=== PATIENT | male | born 1945 | race Caucasian/White ===

== ENCOUNTER 2018-10-01 22:59 | Inpatient (IN) ==
[2018-10-01] MEDS ORDERED: MORPHINE 4 MG/1 ML VIAL IV STA (23:29)
[2018-10-01] MEDS ORDERED: ASPIRIN 325 MG TABLET PO STA (23:29)
[2018-10-01] MEDS ORDERED: ONDANSETRON 4 MG/2 ML VIAL IV STA (23:29)
[2018-10-01] MEDS ORDERED: NITROGLYCERIN 2% OINT 1 INCH/GM PACK TOP STA (23:29)
[2018-10-01] MEDS ORDERED: ALUM/MAG/SIMETH/LIDO VISC 1:1 30 ML BOTTLE PO STA (23:29)
[2018-10-01 23:50] LABS: Basophils # 0.1 10*3/uL (0.0-0.2); Basophils % 0.5 % (0.0-0.8); Eosinophils % 0.1 % (0.00-10.9); Hematocrit 46.8 VOL% (42.0-52.0); Hemoglobin 15.2 GM/DL (14.0-18.0); Immature Granulocytes % 0.6 %; Immature Granulocytes Absolute 0.09 #; Lymphocytes # 1.1 10*3/uL (1.4-4.0); Lymphocytes % 7.3 % (21.2-54.2); Mean Corpuscular HGB Conc 32.5 GM/DL (32-36); Mean Corpuscular Volume 95.1 FL (87-102); Mean Platelet Volume 8.8 FL (9.6-12.0); Monocytes % 4.4 % (1.7-12.7); Neutrophils % 87.1 % (38.7-73.9); Platelet Count 219 T/CUMM (130-400); Red Blood Count 4.92 MC/CUMM (3.8-5.5); Red Cell Distribution Width 12.4 % (9.3-17.3); White Blood Count 14.4 T/CUMM (4-12)
[2018-10-02] MEDS ORDERED: FUROSEMIDE 40 MG/4 ML VIAL IV STA (00:01)
[2018-10-02 00:21] LABS: Alanine Aminotransferase 23 U/L (16-61); Albumin 3.5 G/DL (3.4-5.0); Alkaline Phosphatase 42 U/L (45-117); Aspartate Amino Transferase 19 U/L (0-37); Blood Urea Nitrogen 9 MG/DL (7-18); CKMB % 3.8 %; Calcium 8.7 MG/DL (8.5-10.1); Glucose 146 MG/DL (74-106); Osmolality,Calculated 280.4 MOS/KG (273-304); Total Protein 6.9 G/DL (6.4-8.3)
[2018-10-02 00:25] LABS: Troponin I 0.676 NG/ML (0.00-0.045)
[2018-10-02] MEDS ORDERED: ENOXAPARIN 100 MG/ML SYRINGE SUBCUT STA (02:33)
[2018-10-02] MEDS ORDERED: DOCUSATE SODIUM 100 MG CAPSULE PO PRN (02:49)
[2018-10-02] MEDS ORDERED: ONDANSETRON 4 MG/2 ML VIAL IV PRN ×2 (02:49→16:02)
[2018-10-02] MEDS ORDERED: MORPHINE 4 MG/1 ML VIAL IV PRN ×2 (02:49→16:02)
[2018-10-02] MEDS ORDERED: ACETAMINOPHEN 325 MG TABLET PO PRN (02:49)
[2018-10-02] MEDS ORDERED: NITROGLYCERIN SL 0.4 MG TABLET SL PRN (02:49)
[2018-10-02 03:11] LABS: Apearance,Urine CLEAR (Clear); Bilirubin,Urine Negative (Negative); Blood, Urine Negative (Negative); Glucose,Urine (UA) Negative (Negative); Ketones,Urine 80 mg/dL (Negative); Mucus,Urine Occasional /LPF (Occasional); Nitrite,Urine Negative (Negative); Protein,Urine Negative; RBC,Urine 3 /HPF (0-4); Urine Color Yellow (Yellow); Urine Urobilinogen < 2.0 EU/DL (0.2-1.0); WBC,Urine <1 /HPF (0-6)
[2018-10-02 05:57] LABS: Basophils % 0.4 % (0.0-0.8); Hematocrit 46.7 VOL% (42.0-52.0); Hemoglobin 15.6 GM/DL (14.0-18.0); Immature Granulocytes % 0.4 %; Immature Granulocytes Absolute 0.04 #; Lymphocytes # 1.6 10*3/uL (1.4-4.0); Lymphocytes % 13.9 % (21.2-54.2); Mean Corpuscular HGB Conc 33.4 GM/DL (32-36); Mean Platelet Volume 9.2 FL (9.6-12.0); Monocytes % 8.8 % (1.7-12.7); Neutrophils % 76.5 % (38.7-73.9); Platelet Count 219 T/CUMM (130-400); Red Blood Count 4.97 MC/CUMM (3.8-5.5); Red Cell Distribution Width 12.5 % (9.3-17.3); White Blood Count 11.3 T/CUMM (4-12)
[2018-10-02] MEDS ORDERED: POTASSIUM CHLORIDE RIDER 10 MEQ in PREMIX 1 EACH IV PRN (06:33)
[2018-10-02] MEDS ORDERED: DIAZEPAM 5 MG TABLET PO ONE (06:33)
[2018-10-02] MEDS ORDERED: MAGNESIUM SULF RIDER 2 GM in PREMIX 1 EACH IV PRN ×2 (06:33→16:02)
[2018-10-02] MEDS ORDERED: diphenhydrAMINE CAP 25 MG CAPSULE PO ONE (06:33)
[2018-10-02 06:37] LABS: Calcium 8.8 MG/DL (8.5-10.1); Osmolality,Calculated 276.5 MOS/KG (273-304); Risk Ratio 6.63; Thyroid Stimulating Hormone 0.611 uIU/ml (0.358-3.74); VLDL CHOLESTEROL 24.2 MG/DL
[2018-10-02] MEDS: SODIUM CHLORIDE 0.9% 1,000 ML IV SCH ×2 (07:03→14:48)
[2018-10-02] MEDS ORDERED: MIDAZOLAM 2 MG/2 ML VIAL ONE (07:23)
[2018-10-02] MEDS ORDERED: NITROGLYCERIN DRIP 50 MG/250 ML BOTTLE IV ONE ×2 (07:23→08:57)
[2018-10-02] MEDS ORDERED: LIDOCAINE 1% 20 ML VIAL ONE (07:23)
[2018-10-02] MEDS ORDERED: fentaNYL 100 MCG/2 ML VIAL ONE (07:23)
[2018-10-02] MEDS ORDERED: VERAPAMIL 5 MG/2 ML VIAL ONE (07:23)
[2018-10-02] MEDS ORDERED: PAPAVERINE 60 MG/2 ML VIAL ONE (08:28)
[2018-10-02] MEDS ORDERED: VANCOMYCIN 1,000 MG VIAL ONE (08:29)
[2018-10-02] MEDS ORDERED: MIDAZOLAM 10 MG/2 ML VIAL ONE (08:38)
[2018-10-02] MEDS ORDERED: MINERAL OIL/PETROLATUM OPH OINT 3.5 GM TUBE ONE (08:38)
[2018-10-02] MEDS ORDERED: SUCCINYLCHOLINE 200 MG/10 ML VIAL ONE (08:38)
[2018-10-02] MEDS ORDERED: SUFentanil 250 MCG/5 ML AMP ONE (08:38)
[2018-10-02] MEDS ORDERED: PANTOPRAZOLE 40 MG TABLET PO ONE (08:55)
[2018-10-02] MEDS ORDERED: PHENYLEPHRINE DRIP 20 MG/250 ML PREMIX IV ONE (08:57)
[2018-10-02] MEDS ORDERED: HEPARIN/NACL 0.9% 2 UNITS/ML 500 ML IV ONE (08:57)
[2018-10-02] MEDS ORDERED: ASCORBIC ACID 500 MG TABLET PO SCH (09:00)
[2018-10-02] MEDS ORDERED: LOSARTAN 50 MG TABLET PO SCH (09:00)
[2018-10-02] MEDS ORDERED: MULTIVITAMIN (BEROCCA) TABLET PO SCH (09:00)
[2018-10-02] MEDS ORDERED: amLODIPine 5 MG TABLET PO SCH (09:00)
[2018-10-02] MEDS ORDERED: VITAMIN E 400 UNIT CAPSULE PO SCH (09:00)
[2018-10-02] MEDS ORDERED: ENALAPRIL 20 MG TABLET PO SCH (09:00)
[2018-10-02] MEDS ORDERED: ASPIRIN EC 81 MG TABLET PO SCH (09:00)
[2018-10-02] MEDS ORDERED: CARVEDILOL 6.25 MG TABLET PO SCH (09:00)
[2018-10-02] MEDS ORDERED: DEXTROSE 10% 250 ML BAG IV PRN ×3 (09:05→16:02)
[2018-10-02] MEDS ORDERED: GLUCAGON 1 MG VIAL IM PRN (09:05)
[2018-10-02] MEDS ORDERED: CEFUROXIME INJ 1,500 MG in SYRINGE 1 EACH IV ONE (09:05)
[2018-10-02] MEDS ORDERED: SODIUM CHLORIDE 0.9% 1,000 ML IV SCH (09:30)
[2018-10-02 09:32] LABS: ABG Base Excess -0.2 MMOL/L (-2.5-2.5); ABG HCO3 24.2 MMOL/L (20-26); ABG Oxygen Saturation 95.1 % (95-100); ABG PCO2 35.4 MM HG (35-48); ABG PH 7.429 (7.35-7.45); ABG PO2 76.1 MM HG (80-95); ABG TCO2 19.4 MMOL/L (23-27); Allen Test Positive
[2018-10-02] MEDS ORDERED: NITROPRUSSIDE 50 MG/2 ML VIAL ONE (09:50)
[2018-10-02] MEDS ORDERED: PHENYLEPHRINE DRIP 40 MG/250 ML PREMIX IV ONE (09:50)
[2018-10-02] MEDS ORDERED: ALBUMIN 5% 12.5 GM/250 ML VIAL IV ONE (09:51)
[2018-10-02] MEDS ORDERED: POTASSIUM CHLORIDE RIDER 100 ML IV ONE (09:51)
[2018-10-02 10:39] LABS: ABG Base Excess -0.5 MMOL/L (-2.5-2.5); ABG HCO3 24.1 MMOL/L (20-26); ABG Oxygen Saturation 99.5 % (95-100); ABG PCO2 43.3 MM HG (35-48); ABG TCO2 21.4 MMOL/L (23-27); Glucose Heart Surgery 114 MG/DL (74-106); Hematocrit Heart Surgery 45.9 PERCENT (42-52); Ionized Calcium Arterial 1.15 MMOL/L (1.21-1.46); PCO2 Patient Temp Arterial 43.3 MMHG; Patient Temperature 37 CELCIUS; Potassium Heart/CVR 3.5 MMOL/L (3.5-5.1); Sodium Heart/CVR 137 MMOL/L (135-145)
[2018-10-02 12:21] LABS: Hemoglobin Heart Surgery 10.7 G/DL (14.0-18.0); PCO2 Patient Temp Venous 37.5 MM HG; PH Patient Temp Venous 7.421; PO2 Patient Temp Venous 41.9 MM HG; Potassium Heart/CVR 3.9 MMOL/L (3.5-5.1); VBG Base Excess 0.1 MEQ/L (0-4); VBG HCO3 24.3 MEQ/L (24-28); VBG Oxygen Saturation 84.4 %; VBG PCO2 43.3 MMHG (41-51); VBG PH 7.377; VBG PO2 51.5 MMHG (17-40)
[2018-10-02 12:49] LABS: Hematocrit Heart Surgery 33.8 PERCENT (42-52); PH Patient Temp Venous 7.46; PO2 Patient Temp Venous 42.9 MM HG; Potassium Heart/CVR 3.8 MMOL/L (3.5-5.1); VBG Base Excess 0.2 MEQ/L (0-4); VBG HCO3 24.4 MEQ/L (24-28); VBG PCO2 38.2 MMHG (41-51); VBG PH 7.416; VBG PO2 52.7 MMHG (17-40)
[2018-10-02 12:57] LABS: Apearance,Urine CLEAR (Clear); Bilirubin,Urine Negative (Negative); Blood, Urine Negative (Negative); Glucose,Urine (UA) Negative (Negative); Hyaline Casts,Urine 1 /LPF (0-3); Ketones,Urine 20 mg/dL (Negative); Nitrite,Urine Negative (Negative); Protein,Urine Negative; Squamous Epithelial Cell,Urine Occasional /HPF (0-10); Urine Color Straw (Yellow); Urine Specific Gravity 1.036 (1.001-1.035); Urine Urobilinogen < 2.0 EU/DL (0.2-1.0)
[2018-10-02 13:20] LABS: Glucose Heart Surgery 220 MG/DL (74-106); Hemoglobin Heart Surgery 11.2 G/DL (14.0-18.0); Potassium Heart/CVR 4.2 MMOL/L (3.5-5.1); Sodium Heart/CVR 129 MMOL/L (135-145); VBG Base Excess -0.9 MEQ/L (0-4); VBG Oxygen Saturation 79.6 %; VBG PCO2 30.8 MMHG (41-51); VBG PH 7.472; VBG PO2 47.4 MMHG (17-40)
[2018-10-02] MEDS ORDERED: THROMBIN TOPICAL (RECOMBINANT) 5,000 UNIT VIAL TOP ONE ×2 (13:52→14:27)
[2018-10-02 14:13] LABS: ABG HCO3 21.3 MMOL/L (20-26); ABG Oxygen Saturation 97.7 % (95-100); ABG PCO2 35.5 MM HG (35-48); ABG PH 7.396 (7.35-7.45); ABG PO2 114.6 MM HG (80-95); ABG TCO2 22.4 MMOL/L (23-27); Glucose Heart Surgery 193 MG/DL (74-106); Ionized Calcium Arterial 1.22 MMOL/L (1.21-1.46); PCO2 Patient Temp Arterial 35.5 MMHG; PH Patient Temp Arterial 7.396; PO2 Patient Temp Arterial 114.6 MM HG; Patient Temperature 37 CELCIUS; Potassium Heart/CVR 4.1 MMOL/L (3.5-5.1); Sodium Heart/CVR 131 MMOL/L (135-145)
[2018-10-02] MEDS ORDERED: MANNITOL 100 GM/500 ML BAG IV ONE (14:19)
[2018-10-02] MEDS ORDERED: MAGNESIUM SULFATE 5 GM/10 ML VIAL IV ONE (14:20)
[2018-10-02] MEDS ORDERED: ALBUMIN 25% 25 GM/100 ML VIAL IV ONE (14:20)
[2018-10-02] MEDS ORDERED: PROTAMINE SULFATE 50 MG/5 ML VIAL IV ONE ×2 (14:20→15:47)
[2018-10-02] MEDS ORDERED: FUROSEMIDE 20 MG/2 ML VIAL ONE (14:20)
[2018-10-02] MEDS ORDERED: PROTAMINE SULFATE 250 MG/25 ML VIAL IV ONE (14:20)
[2018-10-02] MEDS ORDERED: SODIUM BICARBONATE 50 MEQ/50 ML VIAL IV ONE (14:20)
[2018-10-02] MEDS ORDERED: DEXTROSE 5% KCL 20 MEQ 20 MEQ/1,000 ML BAG IV ONE (14:20)
[2018-10-02] MEDS ORDERED: HEPARIN 10,000 UNIT/10 ML VIAL ONE (14:20)
[2018-10-02] MEDS ORDERED: methylPREDNISolone SOD SUC 1,000 MG/8 ML VIAL ONE (14:20)
[2018-10-02] MEDS ORDERED: ENOXAPARIN 100 MG/ML SYRINGE SUBCUT SCH (14:30)
[2018-10-02] MEDS ORDERED: CHLORHEXIDINE 4% SOLN 118 ML BOTTLE TOP SCH (15:00)
[2018-10-02] MEDS ORDERED: SEVOFLURANE 1 UNIT/15 MINUTE INH ONE (15:46)
[2018-10-02] MEDS ORDERED: CALCIUM CHLORIDE 1,000 MG/10 ML VIAL IV ONE (15:46)
[2018-10-02] MEDS ORDERED: ETOMIDATE 40 MG/20 ML VIAL IV ONE (15:47)
[2018-10-02] MEDS ORDERED: LACTATED RINGERS 2,000 ML IV ONE (15:47)
[2018-10-02] MEDS ORDERED: ePHEDrine 50 MG/ML AMP ONE (15:47)
[2018-10-02] MEDS ORDERED: SODIUM CHLORIDE 0.9% 1,000 ML IV ONE (15:47)
[2018-10-02] MEDS ORDERED: VECURONIUM 10 MG VIAL IV ONE ×2 (15:47→15:48)
[2018-10-02] MEDS ORDERED: SODIUM CHLORIDE 0.9% 200 ML IV ONE (15:47)
[2018-10-02] MEDS ORDERED: AMINOCAPROIC ACID 5,000 MG/20 ML VIAL ONE (15:48)
[2018-10-02] MEDS: ALBUMIN 5% 12.5 GM in PREMIX 1 EACH IV PRN ×2 (16:00→16:58)
[2018-10-02] MEDS ORDERED: INSULIN REGULAR 100 UNIT/ML IV ONE (16:02)
[2018-10-02] MEDS ORDERED: MIDAZOLAM 10 MG/2 ML VIAL IV PRN (16:02)
[2018-10-02] MEDS ORDERED: VECURONIUM 10 MG VIAL IV PRN ×2 (16:02)
[2018-10-02] MEDS ORDERED: MIDAZOLAM 2 MG/2 ML VIAL IV PRN (16:02)
[2018-10-02] MEDS ORDERED: INSULIN REGULAR DRIP 100 ML IV SCH (16:02)
[2018-10-02] MEDS ORDERED: MAGNESIUM SULF RIDER 4 GM in PREMIX 1 EACH IV PRN (16:02)
[2018-10-02] MEDS ORDERED: INSULIN REGULAR 100 UNIT/ML IV PRN (16:02)
[2018-10-02] MEDS ORDERED: ACETAMINOPHEN 650 MG SUPP RECTAL PRN (16:02)
[2018-10-02] MEDS ORDERED: NITROPRUSSIDE 100 MG in DEXTROSE 5% 250 ML IV PRN (16:02)
[2018-10-02] MEDS ORDERED: CALCIUM CHLORIDE 1,000 MG/10 ML SYRINGE IV PRN (16:02)
[2018-10-02 16:09] LABS: ABG HCO3 21.9 MMOL/L (20-26); ABG Oxygen Saturation 97.3 % (95-100); ABG PCO2 39.8 MM HG (35-48); ABG PH 7.356 (7.35-7.45); ABG PO2 97.4 MM HG (80-95); ABG TCO2 20.3 MMOL/L (23-27); Glucose Heart Surgery 204 MG/DL (74-106); Hematocrit Heart Surgery 31.1 PERCENT (42-52); Hemoglobin Heart Surgery 10.1 G/DL (14.0-18.0)
[2018-10-02 16:10] LABS: Basophils # 0.1 10*3/uL (0.0-0.2); Basophils % 0.3 % (0.0-0.8); Eosinophils % 0.2 % (0.00-10.9); Hematocrit 29.9 VOL% (42.0-52.0); Immature Granulocytes % 1.2 %; Immature Granulocytes Absolute 0.21 #; Lymphocytes # 1.1 10*3/uL (1.4-4.0); Lymphocytes % 6.5 % (21.2-54.2); Mean Corpuscular HGB Conc 32.1 GM/DL (32-36); Mean Corpuscular Volume 97.1 FL (87-102); Mean Platelet Volume 9.3 FL (9.6-12.0); Monocytes % 6.6 % (1.7-12.7); Neutrophils % 85.2 % (38.7-73.9); Platelet Count 141 T/CUMM (130-400); Red Cell Distribution Width 12.6 % (9.3-17.3)
[2018-10-02] MEDS: SODIUM CHLORIDE 0.45% 1,000 ML IV SCH ×2 (16:10)
[2018-10-02 16:12] LABS: Hemoglobin 9.6 GM/DL (14.0-18.0); Red Blood Count 3.08 MC/CUMM (3.8-5.5); White Blood Count 17.5 T/CUMM (4-12)
[2018-10-02 16:17] LABS: INR 1.2; PT Patient Result 12.8 SECS; Partial Thromboplastin Time 28.8 SECS (0-40)
[2018-10-02 16:23] LABS: Albumin 2.7 G/DL (3.4-5.0); Bilirubin,Total 0.9 MG/DL (0.2-1.0); CKMB % 11.8 %; Calcium 7.9 MG/DL (8.5-10.1); Osmolality,Calculated 285.3 MOS/KG (273-304); Total Protein 4.8 G/DL (6.4-8.3)
[2018-10-02 16:33] LABS: Troponin I 34.7 NG/ML (0.00-0.045)
[2018-10-02] MEDS: DOBUTamine 500 MG/250 ML PREMIX IV SCH (16:44)
[2018-10-02] MEDS: KETOROLAC 30 MG/1 ML VIAL IV SCH ×2 (16:44→21:27)
[2018-10-02] MEDS: POTASSIUM CHLORIDE RIDER 20 MEQ in PREMIX 1 EACH IV PRN ×2 (16:45→19:50)
[2018-10-02] MEDS: PHENYLEPHRINE DRIP 40 MG/250 ML PREMIX IV PRN ×2 (16:46→20:31)
[2018-10-02] MEDS: LACTATED RINGERS 1,000 ML IV PRN ×2 (16:59→17:58)
[2018-10-02 17:26] LABS: ABG Base Excess -4.7 MMOL/L (-2.5-2.5); ABG HCO3 20.4 MMOL/L (20-26); ABG Oxygen Saturation 95.7 % (95-100); ABG PCO2 40.2 MM HG (35-48); ABG PH 7.324 (7.35-7.45); ABG PO2 86.6 MM HG (80-95); ABG TCO2 19.3 MMOL/L (23-27); Glucose Heart Surgery 228 MG/DL (74-106); Hematocrit Heart Surgery 29.7 PERCENT (42-52); Hemoglobin Heart Surgery 9.6 G/DL (14.0-18.0); Potassium Heart/CVR 5.1 MMOL/L (3.5-5.1)
[2018-10-02] MEDS ORDERED: FUROSEMIDE 40 MG/4 ML VIAL IV ONE (18:35)
[2018-10-02 19:25] LABS: ABG Base Excess -0.9 MMOL/L (-2.5-2.5); ABG HCO3 23.6 MMOL/L (20-26); ABG Oxygen Saturation 91.7 % (95-100); ABG PCO2 42.5 MM HG (35-48); ABG PH 7.367 (7.35-7.45); ABG PO2 66.2 MM HG (80-95); ABG TCO2 22.6 MMOL/L (23-27); Glucose Heart Surgery 178 MG/DL (74-106); Hematocrit Heart Surgery 28.5 PERCENT (42-52); Hemoglobin Heart Surgery 9.2 G/DL (14.0-18.0); Potassium Heart/CVR 3.7 MMOL/L (3.5-5.1)
[2018-10-02 20:07] LABS: ABG Base Excess 0.3 MMOL/L (-2.5-2.5); ABG HCO3 24.9 MMOL/L (20-26); ABG Oxygen Saturation 96.5 % (95-100); ABG PCO2 40.3 MM HG (35-48); ABG PH 7.409 (7.35-7.45); ABG PO2 94.7 MM HG (80-95); ABG TCO2 26.2 MMOL/L (23-27); Glucose Heart Surgery 159 MG/DL (74-106); Hemoglobin Heart Surgery 9.6 G/DL (14.0-18.0); Potassium Heart/CVR 3.7 MMOL/L (3.5-5.1)
[2018-10-02] MEDS: POTASSIUM CHLORIDE RIDER 10 MEQ in PREMIX 1 EACH IV PRN (20:21)
[2018-10-02] MEDS ORDERED: CHLORHEXIDINE 0.12% ORAL RINSE 60 ML BOTTLE SWISH/SPIT SCH (21:00)
[2018-10-02] MEDS ORDERED: ROSUVASTATIN 20 MG TABLET PO SCH (21:00)
[2018-10-02 21:25] LABS: ABG Base Excess 0.6 MMOL/L (-2.5-2.5); ABG HCO3 24.9 MMOL/L (20-26); ABG Oxygen Saturation 98.4 % (95-100); ABG PCO2 39.6 MM HG (35-48); ABG PH 7.411 (7.35-7.45); Glucose Heart Surgery 146 MG/DL (74-106); Hemoglobin Heart Surgery 9.4 G/DL (14.0-18.0); Potassium Heart/CVR 3.8 MMOL/L (3.5-5.1)
[2018-10-02] MEDS: CHLORHEXIDINE 0.12% ORAL RINSE 60 ML BOTTLE SWISH/SPIT SCH (21:27)
[2018-10-02 22:12] LABS: ABG Base Excess 1.3 MMOL/L (-2.5-2.5); ABG HCO3 25.6 MMOL/L (20-26); ABG Oxygen Saturation 97.1 % (95-100); ABG PCO2 39.4 MM HG (35-48); ABG PH 7.431 (7.35-7.45); ABG PO2 104.1 MM HG (80-95); ABG TCO2 26.8 MMOL/L (23-27); Glucose Heart Surgery 123 MG/DL (74-106); Hemoglobin Heart Surgery 9.5 G/DL (14.0-18.0); Potassium Heart/CVR 3.5 MMOL/L (3.5-5.1)
[2018-10-02] MEDS: LACTATED RINGERS 250 ML IV PRN (23:57)
[2018-10-03 00:02] LABS: ABG Base Excess 0.9 MMOL/L (-2.5-2.5); ABG HCO3 25.2 MMOL/L (20-26); ABG Oxygen Saturation 98.9 % (95-100); ABG PCO2 38.8 MM HG (35-48); ABG PH 7.421 (7.35-7.45); ABG TCO2 22.8 MMOL/L (23-27); Glucose Heart Surgery 109 MG/DL (74-106); Hematocrit Heart Surgery 31.3 PERCENT (42-52); Hemoglobin Heart Surgery 10.1 G/DL (14.0-18.0); Potassium Heart/CVR 3.6 MMOL/L (3.5-5.1)
[2018-10-03] MEDS: CEFUROXIME INJ 1,500 MG in SYRINGE 1 EACH IV SCH ×3 (00:05→22:43)
[2018-10-03] MEDS: POTASSIUM CHLORIDE RIDER 20 MEQ in PREMIX 1 EACH IV PRN ×3 (00:09→10:17)
[2018-10-03] MEDS: LACTATED RINGERS 250 ML IV PRN (00:14)
[2018-10-03] MEDS: POTASSIUM CHLORIDE RIDER 10 MEQ in PREMIX 1 EACH IV PRN ×2 (00:45→05:03)
[2018-10-03 00:48] LABS: CKMB % 9.3 %
[2018-10-03 00:50] LABS: Troponin I 49.3 NG/ML (0.00-0.045)
[2018-10-03 01:23] LABS: ABG Base Excess 0.7 MMOL/L (-2.5-2.5); ABG Oxygen Saturation 98.2 % (95-100); ABG PCO2 38.8 MM HG (35-48); ABG PH 7.418 (7.35-7.45); ABG TCO2 22.8 MMOL/L (23-27); Glucose Heart Surgery 106 MG/DL (74-106); Hematocrit Heart Surgery 30.9 PERCENT (42-52); Potassium Heart/CVR 4.3 MMOL/L (3.5-5.1)
[2018-10-03] MEDS: FUROSEMIDE 40 MG/4 ML VIAL IV PRN (04:06)
[2018-10-03] MEDS: KETOROLAC 30 MG/1 ML VIAL IV SCH ×4 (04:10→21:16)
[2018-10-03 04:29] LABS: ABG HCO3 24.4 MMOL/L (20-26); ABG Oxygen Saturation 94.8 % (95-100); ABG PCO2 35.5 MM HG (35-48); ABG PH 7.436 (7.35-7.45); ABG PO2 71.5 MM HG (80-95); ABG TCO2 21.6 MMOL/L (23-27); Glucose Heart Surgery 111 MG/DL (74-106); Hematocrit Heart Surgery 31.6 PERCENT (42-52); Hemoglobin Heart Surgery 10.2 G/DL (14.0-18.0); Potassium Heart/CVR 3.7 MMOL/L (3.5-5.1)
[2018-10-03 04:59] LABS: Albumin 3.2 G/DL (3.4-5.0); Bilirubin,Direct 0.24 MG/DL (0.0-0.20); Calcium 8.1 MG/DL (8.5-10.1); Osmolality,Calculated 282.1 MOS/KG (273-304); Total Protein 5.7 G/DL (6.4-8.3)
[2018-10-03 05:44] LABS: ABG Base Excess 1.2 MMOL/L (-2.5-2.5); ABG HCO3 25.5 MMOL/L (20-26); ABG Oxygen Saturation 97.8 % (95-100); ABG PCO2 34.7 MM HG (35-48); ABG PO2 92.1 MM HG (80-95); ABG TCO2 22.3 MMOL/L (23-27); Glucose Heart Surgery 119 MG/DL (74-106); Hematocrit Heart Surgery 31.7 PERCENT (42-52); Hemoglobin Heart Surgery 10.2 G/DL (14.0-18.0); Potassium Heart/CVR 4.1 MMOL/L (3.5-5.1)
[2018-10-03 06:00] LABS: Basophils % 0.1 % (0.0-0.8); Hematocrit 30.1 VOL% (42.0-52.0); Hemoglobin 9.7 GM/DL (14.0-18.0); Immature Granulocytes % 0.5 %; Immature Granulocytes Absolute 0.06 #; Lymphocytes # 0.7 10*3/uL (1.4-4.0); Lymphocytes % 5.6 % (21.2-54.2); Mean Corpuscular HGB Conc 32.2 GM/DL (32-36); Mean Corpuscular Volume 96.2 FL (87-102); Mean Platelet Volume 10.7 FL (9.6-12.0); Neutrophils % 88.8 % (38.7-73.9); Platelet Count 134 T/CUMM (130-400); Red Blood Count 3.13 MC/CUMM (3.8-5.5); Red Cell Distribution Width 13.4 % (9.3-17.3); White Blood Count 11.9 T/CUMM (4-12)
[2018-10-03 06:31] LABS: ABG Base Excess 0.2 MMOL/L (-2.5-2.5); ABG HCO3 24.6 MMOL/L (20-26); ABG Oxygen Saturation 98.8 % (95-100); ABG PCO2 33.2 MM HG (35-48); ABG PH 7.459 (7.35-7.45); ABG TCO2 21.3 MMOL/L (23-27); Glucose Heart Surgery 119 MG/DL (74-106); Potassium Heart/CVR 4.4 MMOL/L (3.5-5.1)
[2018-10-03] MEDS ORDERED: NITROGLYCERIN DRIP 50 MG/250 ML BOTTLE IV ONE (07:29)
[2018-10-03] MEDS: CHLORHEXIDINE 0.12% ORAL RINSE 60 ML BOTTLE SWISH/SPIT SCH ×2 (08:07→21:16)
[2018-10-03] MEDS ORDERED: NITROGLYCERIN DRIP 50 MG/250 ML BOTTLE IV PRN (08:25)
[2018-10-03] MEDS: ALBUMIN 5% 12.5 GM in PREMIX 1 EACH IV PRN (08:25)
[2018-10-03 09:54] LABS: ABG Base Excess -2.4 MMOL/L (-2.5-2.5); ABG HCO3 22.4 MMOL/L (20-26); ABG Oxygen Saturation 99.1 % (95-100); ABG PCO2 31.3 MM HG (35-48); ABG PH 7.437 (7.35-7.45); ABG TCO2 19.3 MMOL/L (23-27); Glucose Heart Surgery 121 MG/DL (74-106); Hematocrit Heart Surgery 28.8 PERCENT (42-52); Hemoglobin Heart Surgery 9.3 G/DL (14.0-18.0)
[2018-10-03 11:03] LABS: ABG Base Excess -2.4 MMOL/L (-2.5-2.5); ABG HCO3 22.4 MMOL/L (20-26); ABG Oxygen Saturation 98.6 % (95-100); ABG PCO2 32.5 MM HG (35-48); ABG PH 7.426 (7.35-7.45); ABG TCO2 19.5 MMOL/L (23-27); Glucose Heart Surgery 122 MG/DL (74-106); Hematocrit Heart Surgery 29.2 PERCENT (42-52); Hemoglobin Heart Surgery 9.4 G/DL (14.0-18.0); Potassium Heart/CVR 4.2 MMOL/L (3.5-5.1)
[2018-10-03 13:13] LABS: CKMB % 6.7 %
[2018-10-03 13:14] LABS: Troponin I 51.2 NG/ML (0.00-0.045)
[2018-10-03 16:13] LABS: CKMB % 5.9 %; Troponin I 36.3 NG/ML (0.00-0.045)
[2018-10-03] MEDS: ASPIRIN EC 81 MG TABLET PO SCH (16:55)
[2018-10-03] MEDS: SODIUM CHLORIDE 0.45% 1,000 ML IV SCH ×2 (21:16)
[2018-10-03] MEDS: DOBUTamine 500 MG/250 ML PREMIX IV SCH (23:07)
[2018-10-04] MEDS: DOBUTamine 500 MG/250 ML PREMIX IV SCH (01:21)
[2018-10-04] MEDS: MORPHINE 10 MG/1 ML VIAL IV PRN ×4 (01:32→23:15)
[2018-10-04 04:29] LABS: Basophils % 0.1 % (0.0-0.8); Hematocrit 28.7 VOL% (42.0-52.0); Hemoglobin 9.2 GM/DL (14.0-18.0); Immature Granulocytes Absolute 0.16 #; Lymphocytes # 0.8 10*3/uL (1.4-4.0); Lymphocytes % 5.4 % (21.2-54.2); Mean Corpuscular HGB Conc 32.1 GM/DL (32-36); Mean Corpuscular Volume 96.6 FL (87-102); Mean Platelet Volume 10.8 FL (9.6-12.0); Monocytes % 8.7 % (1.7-12.7); NRBC # 0.02 10*3/uL; Neutrophils % 84.8 % (38.7-73.9); Platelet Count 134 T/CUMM (130-400); Red Blood Count 2.97 MC/CUMM (3.8-5.5); Red Cell Distribution Width 13.6 % (9.3-17.3); White Blood Count 15.3 T/CUMM (4-12)
[2018-10-04 04:34] LABS: Calcium 7.7 MG/DL (8.5-10.1); Osmolality,Calculated 283.5 MOS/KG (273-304)
[2018-10-04 04:45] LABS: Albumin 3.1 G/DL (3.4-5.0); Bilirubin,Direct 0.16 MG/DL (0.0-0.20); Calcium 7.8 MG/DL (8.5-10.1); Osmolality,Calculated 285.4 MOS/KG (273-304); Total Protein 5.5 G/DL (6.4-8.3)
[2018-10-04] MEDS ORDERED: ASPIRIN EC 81 MG TABLET PO SCH (09:00)
[2018-10-04] MEDS ORDERED: ENALAPRIL 20 MG TABLET PO SCH (09:00)
[2018-10-04] MEDS: CARVEDILOL 6.25 MG TABLET PO SCH ×2 (10:04→21:10)
[2018-10-04] MEDS: ASCORBIC ACID 500 MG TABLET PO SCH (10:04)
[2018-10-04] MEDS: ASPIRIN EC 81 MG TABLET PO SCH (10:04)
[2018-10-04] MEDS: amLODIPine 5 MG TABLET PO SCH (10:04)
[2018-10-04] MEDS: LOSARTAN 50 MG TABLET PO SCH (10:04)
[2018-10-04] MEDS: VITAMIN E 400 UNIT CAPSULE PO SCH (10:04)
[2018-10-04] MEDS: MULTIVITAMIN (BEROCCA) TABLET PO SCH (10:04)
[2018-10-04 11:58] LABS: VBG Base Excess 0.4 MEQ/L (0-4); VBG HCO3 23.8 MEQ/L (24-28); VBG Oxygen Saturation 41.8 %; VBG PCO2 39.9 MMHG (41-51); VBG PH 7.405; VBG PO2 27.7 MMHG (17-40)
[2018-10-04] MEDS: FUROSEMIDE 40 MG/4 ML VIAL IV PRN (12:38)
[2018-10-04] MEDS: CHLORHEXIDINE 0.12% ORAL RINSE 60 ML BOTTLE SWISH/SPIT SCH ×2 (12:39→21:11)
[2018-10-04] MEDS: ACETAMINOPHEN 325 MG TABLET PO PRN (12:40)
[2018-10-04] MEDS: SODIUM CHLORIDE 0.45% 1,000 ML IV SCH ×4 (16:53→21:11)
[2018-10-04] MEDS: INSULIN LISPRO 100 UNIT/ML SUBCUT SCH ×2 (17:04→21:10)
[2018-10-04] MEDS ORDERED: ROSUVASTATIN 20 MG TABLET PO SCH (21:00)
[2018-10-05] MEDS: DOBUTamine 500 MG/250 ML PREMIX IV SCH ×2 (00:10→13:31)
[2018-10-05] MEDS: INSULIN LISPRO 100 UNIT/ML SUBCUT SCH ×7 (00:33→22:12)
[2018-10-05] MEDS: MORPHINE 10 MG/1 ML VIAL IV PRN (03:51)
[2018-10-05 04:09] LABS: Basophils % 0.1 % (0.0-0.8); Hematocrit 31.7 VOL% (42.0-52.0); Immature Granulocytes % 1.2 %; Immature Granulocytes Absolute 0.26 #; Lymphocytes # 1.6 10*3/uL (1.4-4.0); Lymphocytes % 7.3 % (21.2-54.2); Mean Corpuscular HGB Conc 31.5 GM/DL (32-36); Mean Corpuscular Volume 97.5 FL (87-102); Mean Platelet Volume 10.1 FL (9.6-12.0); Monocytes % 8.5 % (1.7-12.7); NRBC # 0.04 10*3/uL; Neutrophils % 82.9 % (38.7-73.9); Platelet Count 185 T/CUMM (130-400); Red Blood Count 3.25 MC/CUMM (3.8-5.5); Red Cell Distribution Width 13.3 % (9.3-17.3); White Blood Count 21.8 T/CUMM (4-12)
[2018-10-05 04:27] LABS: Bilirubin,Direct 0.13 MG/DL (0.0-0.20); Bilirubin,Total 0.4 MG/DL (0.2-1.0); Calcium 7.5 MG/DL (8.5-10.1); Osmolality,Calculated 281.8 MOS/KG (273-304); Total Protein 5.9 G/DL (6.4-8.3)
[2018-10-05 05:09] LABS: Anisocytosis 1+; Hypochromasia 1+; Lymphocytes 6 % (20-55); Macrocytosis Slight; Microcytosis Slight; Platelet Estimate Adequate; Segmented Neutrophils 92 % (50-85); Total Cells Counted 100
[2018-10-05] MEDS ORDERED: FUROSEMIDE 40 MG/4 ML VIAL IV ONE ×2 (05:56→12:17)
[2018-10-05] MEDS ORDERED: HEPARIN/NACL 0.9% 2 UNITS/ML 500 ML IV ONE (07:21)
[2018-10-05] MEDS: ALBUMIN 5% 12.5 GM in PREMIX 1 EACH IV PRN ×2 (07:52→09:02)
[2018-10-05] MEDS: VITAMIN E 400 UNIT CAPSULE PO SCH (08:26)
[2018-10-05] MEDS: MULTIVITAMIN (BEROCCA) TABLET PO SCH (08:26)
[2018-10-05] MEDS: amLODIPine 5 MG TABLET PO SCH (08:27)
[2018-10-05] MEDS: LOSARTAN 50 MG TABLET PO SCH (08:27)
[2018-10-05] MEDS: ASCORBIC ACID 500 MG TABLET PO SCH (08:27)
[2018-10-05] MEDS: ASPIRIN EC 81 MG TABLET PO SCH (08:27)
[2018-10-05] MEDS: CARVEDILOL 6.25 MG TABLET PO SCH ×2 (08:27→21:41)
[2018-10-05] MEDS: CHLORHEXIDINE 0.12% ORAL RINSE 60 ML BOTTLE SWISH/SPIT SCH ×3 (08:30→21:42)
[2018-10-05] MEDS: POTASSIUM CHLORIDE RIDER 10 MEQ in PREMIX 1 EACH IV PRN (09:55)
[2018-10-05 11:35] LABS: ABG Base Excess 2.7 MMOL/L (-2.5-2.5); ABG HCO3 26.8 MMOL/L (20-26); ABG Oxygen Saturation 93.6 % (95-100); ABG PCO2 36.7 MM HG (35-48); ABG PH 7.466 (7.35-7.45); ABG PO2 68.7 MM HG (80-95); ABG TCO2 24.1 MMOL/L (23-27); Glucose Heart Surgery 160 MG/DL (74-106); Hematocrit Heart Surgery 29.9 PERCENT (42-52); Hemoglobin Heart Surgery 9.7 G/DL (14.0-18.0); Potassium Heart/CVR 4.1 MMOL/L (3.5-5.1)
[2018-10-05] MEDS ORDERED: oxyCODONE/ACETAMINOPHEN 5-325 MG TABLET PO PRN (12:17)
[2018-10-05] MEDS ORDERED: KETOROLAC 30 MG/1 ML VIAL IV SCH (12:17)
[2018-10-05] MEDS ORDERED: ONDANSETRON 4 MG/2 ML VIAL IV PRN (12:17)
[2018-10-05] MEDS ORDERED: DEXTROSE 50% 25 GM/50 ML VIAL IV PRN ×2 (12:17)
[2018-10-05] MEDS ORDERED: MAGNESIUM SULF RIDER 4 GM in PREMIX 1 EACH IV PRN (12:17)
[2018-10-05] MEDS ORDERED: GLUCAGON 1 MG VIAL IM PRN ×2 (12:17)
[2018-10-05] MEDS ORDERED: SODIUM CHLOR 0.45% KCL 20 MEQ 20 MEQ/1,000 ML BAG IV SCH (12:17)
[2018-10-05] MEDS ORDERED: MAGNESIUM HYDROXIDE SUSP 30 ML UDCUP PO PRN (12:17)
[2018-10-05] MEDS ORDERED: MAGNESIUM SULF RIDER 2 GM in PREMIX 1 EACH IV PRN (12:17)
[2018-10-05 12:33] LABS: Amorphous Crystals,Urine Occasional /HPF (Few); Apearance,Urine Slightly Hazy (Clear); Bilirubin,Urine Negative (Negative); Blood, Urine Negative (Negative); Glucose,Urine (UA) Negative (Negative); Ketones,Urine Negative (Negative); Mucus,Urine Occasional /LPF (Occasional); Nitrite,Urine Negative (Negative); Protein,Urine 30 MG/DL; RBC,Urine 6 /HPF (0-4); Urine Color Amber (Yellow); Urine Specific Gravity 1.023 (1.001-1.035); WBC,Urine 2 /HPF (0-6)
[2018-10-05] MEDS: PANTOPRAZOLE 40 MG TABLET PO SCH (13:26)
[2018-10-05] MEDS: FERROUS SULFATE 325 MG TABLET PO SCH (13:48)
[2018-10-05] MEDS: DOCUSATE SODIUM 100 MG CAPSULE PO SCH (13:48)
[2018-10-05] MEDS ORDERED: PIPERACILLIN/TAZOBACTAM 3,375 MG in SODIUM CHLORIDE 0.9% 100 ML IV ONE (14:00)
[2018-10-05] MEDS: PIPERACILLIN/TAZOBACTAM 3,375 MG in SODIUM CHLORIDE 0.9% 100 ML IV SCH ×2 (14:44→21:42)
[2018-10-05] MEDS: ACETAMINOPHEN 325 MG TABLET PO PRN ×2 (17:17→23:19)
[2018-10-05] MEDS: ZALEPLON 5 MG CAPSULE PO PRN ×2 (21:41→22:45)
[2018-10-06] MEDS: DOBUTamine 500 MG/250 ML PREMIX IV SCH (00:41)
[2018-10-06] MEDS: ALUMINUM/MAGNES/SIMETH MAX STR 30 ML UDCUP PO PRN (03:49)
[2018-10-06 04:19] LABS: Basophils % 0.2 % (0.0-0.8); Eosinophils % 0.1 % (0.00-10.9); Hematocrit 29.3 VOL% (42.0-52.0); Hemoglobin 9.2 GM/DL (14.0-18.0); Immature Granulocytes % 1.5 %; Immature Granulocytes Absolute 0.25 #; Lymphocytes # 1.6 10*3/uL (1.4-4.0); Lymphocytes % 10.2 % (21.2-54.2); Mean Corpuscular HGB Conc 31.4 GM/DL (32-36); Mean Platelet Volume 10.2 FL (9.6-12.0); Monocytes % 8.8 % (1.7-12.7); NRBC # 0.06 10*3/uL; Neutrophils % 79.2 % (38.7-73.9); Platelet Count 170 T/CUMM (130-400); Red Blood Count 2.99 MC/CUMM (3.8-5.5); Red Cell Distribution Width 13.3 % (9.3-17.3); White Blood Count 16.1 T/CUMM (4-12)
[2018-10-06 04:41] LABS: Alanine Aminotransferase 125 U/L (16-61); Albumin 2.5 G/DL (3.4-5.0); Alkaline Phosphatase 84 U/L (45-117); Aspartate Amino Transferase 38 U/L (0-37); Bilirubin,Indirect 0.2 MG/DL (0.0-1.0); Blood Urea Nitrogen 19 MG/DL (7-18); Calcium 6.8 MG/DL (8.5-10.1); Glucose 107 MG/DL (74-106); Osmolality,Calculated 280.4 MOS/KG (273-304)
[2018-10-06] MEDS: PIPERACILLIN/TAZOBACTAM 3,375 MG in SODIUM CHLORIDE 0.9% 100 ML IV SCH ×3 (04:59→22:06)
[2018-10-06] MEDS: POTASSIUM CHLORIDE 20 MEQ TABLET PO PRN ×2 (05:33→06:24)
[2018-10-06] MEDS ORDERED: FUROSEMIDE 40 MG/4 ML VIAL IV ONE (07:24)
[2018-10-06] MEDS: PANTOPRAZOLE 40 MG TABLET PO SCH (09:38)
[2018-10-06] MEDS: ASPIRIN EC 81 MG TABLET PO SCH (09:38)
[2018-10-06] MEDS: amLODIPine 5 MG TABLET PO SCH (09:38)
[2018-10-06] MEDS: ASCORBIC ACID 500 MG TABLET PO SCH (09:38)
[2018-10-06] MEDS: DOCUSATE SODIUM 100 MG CAPSULE PO SCH (09:38)
[2018-10-06] MEDS: CARVEDILOL 12.5 MG TABLET PO SCH ×2 (09:38→17:19)
[2018-10-06] MEDS: VITAMIN E 400 UNIT CAPSULE PO SCH (09:38)
[2018-10-06] MEDS: FERROUS SULFATE 325 MG TABLET PO SCH (09:38)
[2018-10-06] MEDS: LOSARTAN 50 MG TABLET PO SCH (09:39)
[2018-10-06] MEDS: CHLORHEXIDINE 0.12% ORAL RINSE 60 ML BOTTLE SWISH/SPIT SCH ×2 (09:45→22:08)
[2018-10-06] MEDS: INSULIN LISPRO 100 UNIT/ML SUBCUT SCH ×3 (13:50→22:02)
[2018-10-06] MEDS: ACETAMINOPHEN 325 MG TABLET PO PRN (16:55)
[2018-10-07] MEDS: DOBUTamine 500 MG/250 ML PREMIX IV SCH (02:47)
[2018-10-07 03:43] LABS: Basophils % 0.1 % (0.0-0.8); Eosinophils % 0.2 % (0.00-10.9); Hematocrit 29.6 VOL% (42.0-52.0); Hemoglobin 9.6 GM/DL (14.0-18.0); Immature Granulocytes Absolute 0.35 #; Lymphocytes # 1.8 10*3/uL (1.4-4.0); Lymphocytes % 10.5 % (21.2-54.2); Mean Corpuscular HGB Conc 32.4 GM/DL (32-36); Mean Corpuscular Volume 95.5 FL (87-102); Monocytes % 9.3 % (1.7-12.7); NRBC # 0.13 10*3/uL; Neutrophils % 77.9 % (38.7-73.9); Platelet Count 201 T/CUMM (130-400); Red Cell Distribution Width 13.5 % (9.3-17.3); White Blood Count 17.6 T/CUMM (4-12)
[2018-10-07 04:02] LABS: Alanine Aminotransferase 118 U/L (16-61); Albumin 2.7 G/DL (3.4-5.0); Alkaline Phosphatase 91 U/L (45-117); Aspartate Amino Transferase 31 U/L (0-37); Bilirubin,Indirect 0.4 MG/DL (0.0-1.0); Blood Urea Nitrogen 20 MG/DL (7-18); Calcium 7.9 MG/DL (8.5-10.1); Glucose 120 MG/DL (74-106); Total Protein 5.7 G/DL (6.4-8.3)
[2018-10-07] MEDS: PIPERACILLIN/TAZOBACTAM 3,375 MG in SODIUM CHLORIDE 0.9% 100 ML IV SCH ×3 (04:43→20:48)
[2018-10-07] MEDS: POTASSIUM CHLORIDE 20 MEQ TABLET PO PRN (06:27)
[2018-10-07] MEDS ORDERED: FUROSEMIDE 40 MG/4 ML VIAL IV ONE (06:51)
[2018-10-07] MEDS: LOSARTAN 50 MG TABLET PO SCH (09:01)
[2018-10-07] MEDS: FERROUS SULFATE 325 MG TABLET PO SCH ×2 (09:01→12:22)
[2018-10-07] MEDS: ASCORBIC ACID 500 MG TABLET PO SCH (09:01)
[2018-10-07] MEDS: ASPIRIN EC 81 MG TABLET PO SCH (09:02)
[2018-10-07] MEDS: PANTOPRAZOLE 40 MG TABLET PO SCH ×2 (09:02→12:22)
[2018-10-07] MEDS: VITAMIN E 400 UNIT CAPSULE PO SCH (09:02)
[2018-10-07] MEDS: CARVEDILOL 12.5 MG TABLET PO SCH ×2 (09:02→17:03)
[2018-10-07] MEDS: amLODIPine 5 MG TABLET PO SCH (09:02)
[2018-10-07] MEDS: DOCUSATE SODIUM 100 MG CAPSULE PO SCH ×2 (09:02→12:23)
[2018-10-07] MEDS: CHLORHEXIDINE 0.12% ORAL RINSE 60 ML BOTTLE SWISH/SPIT SCH ×3 (09:03→20:47)
[2018-10-07] MEDS: ALUMINUM/MAGNES/SIMETH MAX STR 30 ML UDCUP PO PRN (10:01)
[2018-10-07] MEDS ORDERED: MAGNESIUM HYDROXIDE SUSP 30 ML UDCUP PO PRN (11:29)
[2018-10-07] MEDS ORDERED: MAGNESIUM SULF RIDER 2 GM in PREMIX 1 EACH IV PRN (11:29)
[2018-10-07] MEDS ORDERED: SODIUM CHLOR 0.45% KCL 20 MEQ 20 MEQ/1,000 ML BAG IV SCH (11:29)
[2018-10-07] MEDS ORDERED: ONDANSETRON 4 MG/2 ML VIAL IV PRN (11:29)
[2018-10-07] MEDS ORDERED: ZALEPLON 5 MG CAPSULE PO PRN (11:29)
[2018-10-07] MEDS ORDERED: GLUCAGON 1 MG VIAL IM PRN ×2 (11:29)
[2018-10-07] MEDS ORDERED: ACETAMINOPHEN 325 MG TABLET PO PRN (11:29)
[2018-10-07] MEDS ORDERED: DEXTROSE 10% 250 ML BAG IV PRN (11:29)
[2018-10-07] MEDS ORDERED: MAGNESIUM SULF RIDER 4 GM in PREMIX 1 EACH IV PRN (11:29)
[2018-10-07] MEDS ORDERED: ALUMINUM/MAGNES/SIMETH MAX STR 30 ML UDCUP PO PRN (11:29)
[2018-10-07] MEDS ORDERED: KETOROLAC 15 MG/1 ML VIAL IV PRN (11:29)
[2018-10-07] MEDS ORDERED: DEXTROSE 50% 25 GM/50 ML VIAL IV PRN (11:29)
[2018-10-07] MEDS ORDERED: oxyCODONE/ACETAMINOPHEN 5-325 MG TABLET PO PRN (11:29)
[2018-10-07] MEDS: INSULIN LISPRO 100 UNIT/ML SUBCUT SCH (12:21)
[2018-10-08] MEDS: PIPERACILLIN/TAZOBACTAM 3,375 MG in SODIUM CHLORIDE 0.9% 100 ML IV SCH ×3 (05:00→20:19)
[2018-10-08] MEDS ORDERED: FUROSEMIDE 40 MG/4 ML VIAL IV ONE (06:00)
[2018-10-08] MEDS: LOSARTAN 50 MG TABLET PO SCH (08:28)
[2018-10-08] MEDS: CARVEDILOL 12.5 MG TABLET PO SCH ×2 (08:29→17:10)
[2018-10-08] MEDS: ASCORBIC ACID 500 MG TABLET PO SCH (08:29)
[2018-10-08] MEDS: ASPIRIN EC 81 MG TABLET PO SCH (08:29)
[2018-10-08] MEDS: VITAMIN E 400 UNIT CAPSULE PO SCH (08:29)
[2018-10-08] MEDS: FERROUS SULFATE 325 MG TABLET PO SCH (08:29)
[2018-10-08] MEDS: PANTOPRAZOLE 40 MG TABLET PO SCH (08:29)
[2018-10-08] MEDS: amLODIPine 5 MG TABLET PO SCH (08:29)
[2018-10-08] MEDS: CHLORHEXIDINE 0.12% ORAL RINSE 60 ML BOTTLE SWISH/SPIT SCH ×2 (08:30→20:20)
[2018-10-08] MEDS: DOCUSATE SODIUM 100 MG CAPSULE PO SCH (08:30)
[2018-10-08] MEDS: ATORVASTATIN 20 MG TABLET PO SCH (20:19)
[2018-10-09] MEDS: PIPERACILLIN/TAZOBACTAM 3,375 MG in SODIUM CHLORIDE 0.9% 100 ML IV SCH ×3 (04:48→22:18)
[2018-10-09 05:02] LABS: Basophils # 0.1 10*3/uL (0.0-0.2); Basophils % 0.3 % (0.0-0.8); Eosinophils # 0.2 10*3/uL (0.0-0.87); Eosinophils % 0.9 % (0.00-10.9); Hematocrit 31.5 VOL% (42.0-52.0); Hemoglobin 9.8 GM/DL (14.0-18.0); Immature Granulocytes % 5.7 %; Immature Granulocytes Absolute 0.99 #; Lymphocytes % 11.4 % (21.2-54.2); Mean Corpuscular HGB Conc 31.1 GM/DL (32-36); Mean Corpuscular Volume 96.9 FL (87-102); Mean Platelet Volume 9.5 FL (9.6-12.0); Monocytes % 8.5 % (1.7-12.7); NRBC # 0.04 10*3/uL; Neutrophils % 73.2 % (38.7-73.9); Platelet Count 274 T/CUMM (130-400); Red Blood Count 3.25 MC/CUMM (3.8-5.5); Red Cell Distribution Width 13.7 % (9.3-17.3); White Blood Count 17.4 T/CUMM (4-12)
[2018-10-09 05:27] LABS: Eosinophils 1 % (0-10); Hypochromasia 1+; Lymphocytes 8 % (20-55); Platelet Estimate Adequate; Segmented Neutrophils 81 % (50-85); Total Cells Counted 100
[2018-10-09 05:52] LABS: Calcium 7.9 MG/DL (8.5-10.1)
[2018-10-09] MEDS: LOSARTAN 50 MG TABLET PO SCH (08:31)
[2018-10-09] MEDS: VITAMIN E 400 UNIT CAPSULE PO SCH (08:31)
[2018-10-09] MEDS: CARVEDILOL 12.5 MG TABLET PO SCH ×2 (08:32→16:31)
[2018-10-09] MEDS: ASPIRIN EC 81 MG TABLET PO SCH (08:32)
[2018-10-09] MEDS: PANTOPRAZOLE 40 MG TABLET PO SCH (08:32)
[2018-10-09] MEDS: FERROUS SULFATE 325 MG TABLET PO SCH (08:32)
[2018-10-09] MEDS: amLODIPine 5 MG TABLET PO SCH (08:32)
[2018-10-09] MEDS: DOCUSATE SODIUM 100 MG CAPSULE PO SCH (08:32)
[2018-10-09] MEDS: ASCORBIC ACID 500 MG TABLET PO SCH (08:32)
[2018-10-09] MEDS: CHLORHEXIDINE 0.12% ORAL RINSE 60 ML BOTTLE SWISH/SPIT SCH ×2 (08:35→20:06)
[2018-10-09] MEDS: FUROSEMIDE 40 MG/4 ML VIAL IV SCH ×2 (10:02→16:31)
[2018-10-09] MEDS: VANCOMYCIN INJ 1,500 MG in SODIUM CHLORIDE 0.9% 500 ML IV SCH (14:15)
[2018-10-09] MEDS: ATORVASTATIN 20 MG TABLET PO SCH (20:06)
[2018-10-10] MEDS: VANCOMYCIN INJ 1,500 MG in SODIUM CHLORIDE 0.9% 500 ML IV SCH ×2 (00:17→13:32)
[2018-10-10 04:52] LABS: Basophils % 0.3 % (0.0-0.8); Eosinophils # 0.3 10*3/uL (0.0-0.87); Eosinophils % 1.9 % (0.00-10.9); Hematocrit 30.9 VOL% (42.0-52.0); Hemoglobin 10.1 GM/DL (14.0-18.0); Immature Granulocytes % 5.6 %; Immature Granulocytes Absolute 0.82 #; Lymphocytes # 1.5 10*3/uL (1.4-4.0); Lymphocytes % 10.2 % (21.2-54.2); Mean Corpuscular HGB Conc 32.7 GM/DL (32-36); Mean Corpuscular Volume 94.2 FL (87-102); Mean Platelet Volume 9.7 FL (9.6-12.0); Monocytes % 8.8 % (1.7-12.7); NRBC # 0.02 10*3/uL; Neutrophils % 73.2 % (38.7-73.9); Platelet Count 268 T/CUMM (130-400); Red Blood Count 3.28 MC/CUMM (3.8-5.5); Red Cell Distribution Width 13.9 % (9.3-17.3); White Blood Count 14.6 T/CUMM (4-12)
[2018-10-10 05:12] LABS: Band Neutrophils 2 % (0-10); Hypochromasia 1+; Lymphocytes 10 % (20-55); Platelet Estimate Adequate; Segmented Neutrophils 82 % (50-85); Total Cells Counted 100
[2018-10-10 05:22] LABS: Osmolality,Calculated 273.8 MOS/KG (273-304)
[2018-10-10] MEDS: PIPERACILLIN/TAZOBACTAM 3,375 MG in SODIUM CHLORIDE 0.9% 100 ML IV SCH ×3 (06:24→23:06)
[2018-10-10] MEDS: DOCUSATE SODIUM 100 MG CAPSULE PO SCH (08:28)
[2018-10-10] MEDS: ASCORBIC ACID 500 MG TABLET PO SCH (08:28)
[2018-10-10] MEDS: LOSARTAN 50 MG TABLET PO SCH (08:28)
[2018-10-10] MEDS: ASPIRIN EC 81 MG TABLET PO SCH (08:28)
[2018-10-10] MEDS: CARVEDILOL 25 MG TABLET PO SCH ×2 (08:28→20:42)
[2018-10-10] MEDS: PANTOPRAZOLE 40 MG TABLET PO SCH (08:28)
[2018-10-10] MEDS: VITAMIN E 400 UNIT CAPSULE PO SCH (08:28)
[2018-10-10] MEDS: CHLORHEXIDINE 0.12% ORAL RINSE 60 ML BOTTLE SWISH/SPIT SCH ×2 (08:29→20:43)
[2018-10-10] MEDS: FERROUS SULFATE 325 MG TABLET PO SCH (08:29)
[2018-10-10] MEDS: FUROSEMIDE 40 MG/4 ML VIAL IV SCH ×2 (08:29→15:50)
[2018-10-10] MEDS: ATORVASTATIN 20 MG TABLET PO SCH (20:42)
[2018-10-11] MEDS: VANCOMYCIN INJ 1,500 MG in SODIUM CHLORIDE 0.9% 500 ML IV SCH ×2 (02:22→13:49)
[2018-10-11 05:20] LABS: Basophils % 0.3 % (0.0-0.8); Eosinophils # 0.3 10*3/uL (0.0-0.87); Eosinophils % 2.4 % (0.00-10.9); Hematocrit 30.5 VOL% (42.0-52.0); Hemoglobin 9.5 GM/DL (14.0-18.0); Immature Granulocytes % 3.9 %; Immature Granulocytes Absolute 0.48 #; Lymphocytes # 1.6 10*3/uL (1.4-4.0); Mean Corpuscular HGB Conc 31.1 GM/DL (32-36); Mean Corpuscular Volume 96.2 FL (87-102); Mean Platelet Volume 9.2 FL (9.6-12.0); Monocytes % 8.9 % (1.7-12.7); Neutrophils % 71.5 % (38.7-73.9); Platelet Count 257 T/CUMM (130-400); Red Blood Count 3.17 MC/CUMM (3.8-5.5); Red Cell Distribution Width 14.3 % (9.3-17.3); White Blood Count 12.3 T/CUMM (4-12)
[2018-10-11 05:40] LABS: Alanine Aminotransferase 42 U/L (16-61); Albumin 2.6 G/DL (3.4-5.0); Alkaline Phosphatase 56 U/L (45-117); Aspartate Amino Transferase 16 U/L (0-37); Bilirubin,Indirect 1.1 MG/DL (0.0-1.0); Blood Urea Nitrogen 15 MG/DL (7-18); Calcium 7.9 MG/DL (8.5-10.1); Glucose 104 MG/DL (74-106); Osmolality,Calculated 277.5 MOS/KG (273-304); Total Protein 5.4 G/DL (6.4-8.3); Troponin I 0.969 NG/ML (0.00-0.045)
[2018-10-11] MEDS: PIPERACILLIN/TAZOBACTAM 3,375 MG in SODIUM CHLORIDE 0.9% 100 ML IV SCH ×3 (06:25→23:13)
[2018-10-11] MEDS: POTASSIUM CHLORIDE 20 MEQ TABLET PO PRN ×3 (06:25→13:49)
[2018-10-11] MEDS: DOCUSATE SODIUM 100 MG CAPSULE PO SCH (10:07)
[2018-10-11] MEDS: ASPIRIN EC 81 MG TABLET PO SCH (10:07)
[2018-10-11] MEDS: PANTOPRAZOLE 40 MG TABLET PO SCH (10:07)
[2018-10-11] MEDS: LOSARTAN 50 MG TABLET PO SCH (10:07)
[2018-10-11] MEDS: ASCORBIC ACID 500 MG TABLET PO SCH (10:07)
[2018-10-11] MEDS: VITAMIN E 400 UNIT CAPSULE PO SCH (10:07)
[2018-10-11] MEDS: FUROSEMIDE 40 MG/4 ML VIAL IV SCH ×2 (10:08→15:45)
[2018-10-11] MEDS: CARVEDILOL 25 MG TABLET PO SCH ×2 (10:10→21:00)
[2018-10-11] MEDS: CHLORHEXIDINE 0.12% ORAL RINSE 60 ML BOTTLE SWISH/SPIT SCH ×2 (10:13→21:03)
[2018-10-11] MEDS: FERROUS SULFATE 325 MG TABLET PO SCH (10:14)
[2018-10-11] MEDS: ATORVASTATIN 20 MG TABLET PO SCH (21:00)
[2018-10-12] MEDS: VANCOMYCIN INJ 1,500 MG in SODIUM CHLORIDE 0.9% 500 ML IV SCH ×2 (01:52→15:38)
[2018-10-12 06:01] LABS: Basophils % 0.3 % (0.0-0.8); Eosinophils # 0.3 10*3/uL (0.0-0.87); Hematocrit 30.1 VOL% (42.0-52.0); Hemoglobin 9.5 GM/DL (14.0-18.0); Immature Granulocytes % 2.3 %; Immature Granulocytes Absolute 0.29 #; Lymphocytes # 1.3 10*3/uL (1.4-4.0); Lymphocytes % 10.2 % (21.2-54.2); Mean Corpuscular HGB Conc 31.6 GM/DL (32-36); Mean Corpuscular Volume 96.8 FL (87-102); Mean Platelet Volume 9.4 FL (9.6-12.0); Monocytes % 7.5 % (1.7-12.7); Neutrophils % 77.7 % (38.7-73.9); Platelet Count 259 T/CUMM (130-400); Red Blood Count 3.11 MC/CUMM (3.8-5.5); Red Cell Distribution Width 14.4 % (9.3-17.3); White Blood Count 12.7 T/CUMM (4-12)
[2018-10-12 06:28] LABS: Alanine Aminotransferase 35 U/L (16-61); Albumin 2.6 G/DL (3.4-5.0); Alkaline Phosphatase 50 U/L (45-117); Aspartate Amino Transferase 16 U/L (0-37); Bilirubin,Indirect 0.9 MG/DL (0.0-1.0); Blood Urea Nitrogen 16 MG/DL (7-18); Calcium 7.9 MG/DL (8.5-10.1); Glucose 96 MG/DL (74-106); Osmolality,Calculated 281.3 MOS/KG (273-304); Total Protein 5.5 G/DL (6.4-8.3); Troponin I 0.564 NG/ML (0.00-0.045)
[2018-10-12] MEDS: PIPERACILLIN/TAZOBACTAM 3,375 MG in SODIUM CHLORIDE 0.9% 100 ML IV SCH ×3 (06:39→23:03)
[2018-10-12] MEDS: LOSARTAN 50 MG TABLET PO SCH (10:22)
[2018-10-12] MEDS: ASCORBIC ACID 500 MG TABLET PO SCH (10:23)
[2018-10-12] MEDS: POTASSIUM CHLORIDE 20 MEQ TABLET PO PRN ×3 (10:23→14:00)
[2018-10-12] MEDS: FUROSEMIDE 20 MG TABLET PO SCH (10:23)
[2018-10-12] MEDS: DOCUSATE SODIUM 100 MG CAPSULE PO SCH (10:23)
[2018-10-12] MEDS: CHLORHEXIDINE 0.12% ORAL RINSE 60 ML BOTTLE SWISH/SPIT SCH ×2 (10:24→21:18)
[2018-10-12] MEDS: PANTOPRAZOLE 40 MG TABLET PO SCH (10:24)
[2018-10-12] MEDS: CARVEDILOL 25 MG TABLET PO SCH ×2 (10:24→21:16)
[2018-10-12] MEDS: FERROUS SULFATE 325 MG TABLET PO SCH (10:24)
[2018-10-12] MEDS: VITAMIN E 400 UNIT CAPSULE PO SCH (10:24)
[2018-10-12] MEDS: ASPIRIN EC 81 MG TABLET PO SCH (10:24)
[2018-10-12] MEDS ORDERED: POTASSIUM CHLORIDE 20 MEQ TABLET PO ONE (16:30)
[2018-10-12] MEDS: ATORVASTATIN 20 MG TABLET PO SCH (21:16)
[2018-10-13] MEDS: VANCOMYCIN INJ 1,500 MG in SODIUM CHLORIDE 0.9% 500 ML IV SCH (02:44)
[2018-10-13 05:12] LABS: Basophils % 0.3 % (0.0-0.8); Eosinophils # 0.2 10*3/uL (0.0-0.87); Eosinophils % 1.7 % (0.00-10.9); Hematocrit 28.7 VOL% (42.0-52.0); Hemoglobin 9.1 GM/DL (14.0-18.0); Immature Granulocytes % 1.3 %; Immature Granulocytes Absolute 0.17 #; Lymphocytes # 1.5 10*3/uL (1.4-4.0); Lymphocytes % 11.8 % (21.2-54.2); Mean Corpuscular HGB Conc 31.7 GM/DL (32-36); Mean Platelet Volume 9.4 FL (9.6-12.0); Monocytes % 8.3 % (1.7-12.7); Neutrophils % 76.6 % (38.7-73.9); Platelet Count 246 T/CUMM (130-400); Red Blood Count 2.93 MC/CUMM (3.8-5.5); Red Cell Distribution Width 14.6 % (9.3-17.3); White Blood Count 12.9 T/CUMM (4-12)
[2018-10-13 05:32] LABS: Calcium 7.6 MG/DL (8.5-10.1); Osmolality,Calculated 283.3 MOS/KG (273-304)
[2018-10-13] MEDS: CARVEDILOL 25 MG TABLET PO SCH (09:49)
[2018-10-13] MEDS: ASPIRIN EC 81 MG TABLET PO SCH (09:49)
[2018-10-13] MEDS: VITAMIN E 400 UNIT CAPSULE PO SCH (09:49)
[2018-10-13] MEDS: PANTOPRAZOLE 40 MG TABLET PO SCH (09:50)
[2018-10-13] MEDS: LOSARTAN 50 MG TABLET PO SCH (09:50)
[2018-10-13] MEDS: FUROSEMIDE 20 MG TABLET PO SCH (09:50)
[2018-10-13] MEDS: FERROUS SULFATE 325 MG TABLET PO SCH (09:51)
[2018-10-13] MEDS: DOCUSATE SODIUM 100 MG CAPSULE PO SCH (09:51)
[2018-10-13] MEDS: CHLORHEXIDINE 0.12% ORAL RINSE 60 ML BOTTLE SWISH/SPIT SCH (09:53)
[2018-10-13] MEDS: ASCORBIC ACID 500 MG TABLET PO SCH (09:53)
[2018-10-13 12:25] VITALS: BP 107/55
== END 2018-10-13 15:00 | disposition home health service (06) | DRG 233 ==
LOC: EDBD → EDUNIT# → N.EDINP 22:59 → N.ED 22:59 → N.TELES 10-02 02:55 → SUATTDRO 10-02 09:53 → N.CVR 10-02 14:52 → N.ICU 10-03 16:24 → N.TELES 10-07 11:32
PROVIDERS: ADMIT Internal Medicine; ATTEND Phlebology

== ENCOUNTER 2018-11-30 04:32 | Observation (INO) ==
[2018-11-30 05:59] LABS: Basophils # 0.1 10*3/uL (0.0-0.2); Basophils % 0.5 % (0.0-0.8); Eosinophils % 0.2 % (0.00-10.9); Hematocrit 36.3 VOL% (42.0-52.0); Hemoglobin 11.3 GM/DL (14.0-18.0); Immature Granulocytes % 0.6 %; Immature Granulocytes Absolute 0.06 #; Lymphocytes # 1.3 10*3/uL (1.4-4.0); Lymphocytes % 13.4 % (21.2-54.2); Mean Corpuscular HGB Conc 31.1 GM/DL (32-36); Mean Corpuscular Volume 88.3 FL (87-102); Mean Platelet Volume 9.4 FL (9.6-12.0); Monocytes % 5.1 % (1.7-12.7); Neutrophils % 80.2 % (38.7-73.9); Platelet Count 216 T/CUMM (130-400); Red Blood Count 4.11 MC/CUMM (3.8-5.5); Red Cell Distribution Width 13.1 % (9.3-17.3); White Blood Count 9.5 T/CUMM (4-12)
[2018-11-30] MEDS ORDERED: hydrALAZINE 20 MG/1 ML VIAL IM STA (06:01)
[2018-11-30 06:23] LABS: Albumin 3.6 G/DL (3.4-5.0); Bilirubin,Total 0.5 MG/DL (0.2-1.0); Calcium 8.8 MG/DL (8.5-10.1); Osmolality,Calculated 278.4 MOS/KG (273-304); Total Protein 7.5 G/DL (6.4-8.3)
[2018-11-30] MEDS ORDERED: FUROSEMIDE 40 MG/4 ML VIAL IV STA (07:52)
[2018-11-30] MEDS ORDERED: ZALEPLON 5 MG CAPSULE PO PRN (08:01)
[2018-11-30] MEDS ORDERED: MAGNESIUM SULF RIDER 2 GM in PREMIX 1 EACH IV PRN (08:01)
[2018-11-30] MEDS ORDERED: DOCUSATE SODIUM 100 MG CAPSULE PO PRN (08:01)
[2018-11-30] MEDS ORDERED: ONDANSETRON 4 MG/2 ML VIAL IV PRN (08:01)
[2018-11-30] MEDS ORDERED: ACETAMINOPHEN 325 MG TABLET PO PRN (08:01)
[2018-11-30] MEDS ORDERED: MAGNESIUM SULF RIDER 4 GM in PREMIX 1 EACH IV PRN (08:01)
[2018-11-30] MEDS: PANTOPRAZOLE 40 MG TABLET PO SCH (09:35)
[2018-11-30] MEDS: ENOXAPARIN 40 MG/0.4 ML SYRINGE SUBCUT SCH (09:35)
[2018-11-30 10:14] LABS: Troponin I 0.151 NG/ML (0.00-0.045)
[2018-11-30] MEDS ORDERED: hydrALAZINE 20 MG/1 ML VIAL IV PRN (11:05)
[2018-11-30 12:30] LABS: Troponin I 0.159 NG/ML (0.00-0.045)
[2018-11-30] MEDS: LOSARTAN 50 MG TABLET PO SCH (13:00)
[2018-11-30] MEDS: CARVEDILOL 6.25 MG TABLET PO SCH ×2 (13:01→16:55)
[2018-11-30 15:16] LABS: Troponin I 0.204 NG/ML (0.00-0.045)
[2018-11-30] MEDS: FUROSEMIDE 40 MG/4 ML VIAL IV SCH (16:55)
[2018-11-30] MEDS ORDERED: CARVEDILOL 6.25 MG TABLET PO SCH (21:00)
[2018-12-01 04:24] LABS: Basophils # 0.1 10*3/uL (0.0-0.2); Basophils % 0.7 % (0.0-0.8); Eosinophils # 0.1 10*3/uL (0.0-0.87); Eosinophils % 1.9 % (0.00-10.9); Immature Granulocytes % 0.1 %; Immature Granulocytes Absolute 0.01 #; Lymphocytes # 2.4 10*3/uL (1.4-4.0); Mean Corpuscular HGB Conc 30.6 GM/DL (32-36); Mean Platelet Volume 9.6 FL (9.6-12.0); Monocytes % 11.9 % (1.7-12.7); Neutrophils % 53.4 % (38.7-73.9); Platelet Count 219 T/CUMM (130-400); Red Blood Count 4.09 MC/CUMM (3.8-5.5); Red Cell Distribution Width 13.2 % (9.3-17.3); White Blood Count 7.4 T/CUMM (4-12)
[2018-12-01 05:02] LABS: Calcium 8.6 MG/DL (8.5-10.1); Osmolality,Calculated 280.3 MOS/KG (273-304); Risk Ratio 5.04; VLDL CHOLESTEROL 28.8 MG/DL
[2018-12-01 07:45] VITALS: BP 138/86
[2018-12-01 08:15] LABS: Lymphocytes 30 % (20-55); Polychromasia Slight; Segmented Neutrophils 62 % (50-85); Total Cells Counted 100
[2018-12-01 08:16] LABS: Atypical Lymphocytes Few; Elliptocytes Few; Hypochromasia 1+; Microcytosis Slight; Platelet Estimate Normal
[2018-12-01] MEDS ORDERED: ASCORBIC ACID 500 MG TABLET PO SCH (09:00)
[2018-12-01] MEDS ORDERED: ROSUVASTATIN 10 MG TABLET PO SCH (09:00)
[2018-12-01] MEDS ORDERED: POTASSIUM CHLORIDE 20 MEQ TABLET PO SCH (09:00)
[2018-12-01] MEDS ORDERED: ASPIRIN EC 81 MG TABLET PO SCH (09:00)
[2018-12-01] MEDS ORDERED: MULTIVITAMIN (BEROCCA) TABLET PO SCH (09:00)
[2018-12-01] MEDS ORDERED: VITAMIN E 400 UNIT CAPSULE PO SCH (09:00)
[2018-12-01] MEDS: PANTOPRAZOLE 40 MG TABLET PO SCH (09:35)
[2018-12-01] MEDS: ENOXAPARIN 40 MG/0.4 ML SYRINGE SUBCUT SCH (09:35)
[2018-12-01] MEDS: CARVEDILOL 6.25 MG TABLET PO SCH (09:36)
[2018-12-01] MEDS: LOSARTAN 50 MG TABLET PO SCH (09:38)
[2018-12-01] MEDS: FUROSEMIDE 40 MG/4 ML VIAL IV SCH (09:58)
== END 2018-12-01 12:53 | disposition home or self-care (01) ==
LOC: N.EDINP 04:32 → N.ED 04:32 → N.TELES 11:59
PROVIDERS: ADMIT Internal Medicine Interventional Cardiology; ATTEND Internal Medicine Interventional Cardiology

== ENCOUNTER 2020-06-29 11:19 | Inpatient (IN) ==
[2020-06-29 13:26] LABS: Bilirubin,Total 1.6 MG/DL (0.2-1.0); Osmolality,Calculated 266.4 MOS/KG (273-304); Potassium 4.7 MMOL/L (3.5-5.1); Total Protein 7.2 G/DL (6.4-8.2)
[2020-06-29 13:30] LABS: Basophils # 0.1 10*3/uL (0.0-0.2); Basophils % 0.6 % (0.0-0.8); Eosinophils # 0.1 10*3/uL (0.0-0.87); Eosinophils % 0.5 % (0.00-10.9); Hematocrit 45.6 VOL% (42.0-52.0); Hemoglobin 13.6 GM/DL (14.0-18.0); Immature Granulocytes % 0.4 %; Immature Granulocytes Absolute 0.04 #; Lymphocytes # 1.5 10*3/uL (1.4-4.0); Lymphocytes % 15.8 % (21.2-54.2); Mean Corpuscular HGB Conc 29.8 GM/DL (32-36); Mean Corpuscular Volume 80.9 FL (87-102); Mean Platelet Volume 9.7 FL (9.6-12.0); Monocytes % 9.8 % (1.7-12.7); Neutrophils % 72.9 % (38.7-73.9); Platelet Count 156 T/CUMM (130-400); Red Blood Count 5.64 MC/CUMM (3.8-5.5); Red Cell Distribution Width 19.7 % (9.3-17.3); White Blood Count 9.4 T/CUMM (4-12)
[2020-06-29 14:38] LABS: Bilirubin,Urine Negative (Negative); Blood, Urine Negative (Negative); Glucose,Urine (UA) Negative (Negative); Ketones,Urine Negative (Negative); Nitrite,Urine Negative (Negative); Protein,Urine 30 MG/DL; RBC,Urine 1 /HPF (0-4); Sperm,Urine Occasional /HPF (Negative); Urine Appearance CLEAR (Clear); Urine Color Yellow (Yellow); Urine Urobilinogen < 2.0 EU/DL (0.2-1.0); WBC,Urine <1 /HPF (0-6)
[2020-06-29] MEDS ORDERED: cefTRIAXone 1,000 MG in SODIUM CHLORIDE 0.9% 100 ML IV STA (17:25)
[2020-06-29] MEDS ORDERED: ACETAMINOPHEN 325 MG TABLET PO PRN (17:37)
[2020-06-29] MEDS ORDERED: DEXTROSE 50% 25 GM/50 ML VIAL IV PRN (17:37)
[2020-06-29] MEDS ORDERED: ONDANSETRON 4 MG/2 ML VIAL IV PRN (17:37)
[2020-06-29] MEDS ORDERED: GLUCAGON 1 MG VIAL IM PRN (17:37)
[2020-06-29] MEDS: ENOXAPARIN 40 MG/0.4 ML SYRINGE SUBCUT SCH (18:34)
[2020-06-29] MEDS: carvediloL 6.25 MG TABLET PO SCH (21:13)
[2020-06-29] MEDS: DOCUSATE SODIUM 100 MG CAPSULE PO SCH (21:13)
[2020-06-30 06:21] LABS: Basophils # 0.1 10*3/uL (0.0-0.2); Basophils % 0.7 % (0.0-0.8); Eosinophils # 0.1 10*3/uL (0.0-0.87); Eosinophils % 1.1 % (0.00-10.9); Hematocrit 39.8 VOL% (42.0-52.0); Hemoglobin 12.3 GM/DL (14.0-18.0); Immature Granulocytes % 0.4 %; Immature Granulocytes Absolute 0.03 #; Lymphocytes # 1.4 10*3/uL (1.4-4.0); Lymphocytes % 19.6 % (21.2-54.2); Mean Corpuscular HGB Conc 30.9 GM/DL (32-36); Mean Corpuscular Volume 79.1 FL (87-102); Mean Platelet Volume 10.2 FL (9.6-12.0); Monocytes % 11.7 % (1.7-12.7); Neutrophils % 66.5 % (38.7-73.9); Platelet Count 127 T/CUMM (130-400); Red Blood Count 5.03 MC/CUMM (3.8-5.5); Red Cell Distribution Width 19.3 % (9.3-17.3); White Blood Count 7.4 T/CUMM (4-12)
[2020-06-30 06:39] LABS: Calcium 8.6 MG/DL (8.5-10.1); Osmolality,Calculated 273.8 MOS/KG (273-304); Potassium 4.5 MMOL/L (3.5-5.1)
[2020-06-30] MEDS: ASPIRIN EC 81 MG TABLET PO SCH (08:04)
[2020-06-30] MEDS: CHOLECALCIFEROL 1,000 UNIT TABLET PO SCH (08:04)
[2020-06-30] MEDS: POTASSIUM CHLORIDE 20 MEQ TABLET PO SCH (08:04)
[2020-06-30] MEDS: carvediloL 6.25 MG TABLET PO SCH ×2 (08:04→22:11)
[2020-06-30] MEDS: FUROSEMIDE 40 MG/4 ML VIAL IV SCH (08:04)
[2020-06-30] MEDS: lisinopriL 10 MG TABLET PO SCH (08:04)
[2020-06-30] MEDS: DOCUSATE SODIUM 100 MG CAPSULE PO SCH ×2 (08:04→22:10)
[2020-06-30] MEDS: AZITHROMYCIN INJ 500 MG in SODIUM CHLORIDE 0.9% 250 ML IV SCH (08:05)
[2020-06-30] MEDS ORDERED: cefTRIAXone 2,000 MG in SODIUM CHLORIDE 0.9% 100 ML IV SCH (09:00)
[2020-06-30] MEDS: LORATADINE 10 MG TABLET PO SCH (16:24)
[2020-06-30] MEDS: ENOXAPARIN 40 MG/0.4 ML SYRINGE SUBCUT SCH (17:06)
[2020-06-30] MEDS: guaiFENesin 200 MG/10 ML UDCUP PO PRN (23:43)
[2020-07-01] MEDS: guaiFENesin 200 MG/10 ML UDCUP PO PRN ×2 (04:57→08:52)
[2020-07-01 05:43] LABS: Basophils # 0.1 10*3/uL (0.0-0.2); Basophils % 0.7 % (0.0-0.8); Eosinophils # 0.1 10*3/uL (0.0-0.87); Eosinophils % 1.2 % (0.00-10.9); Hemoglobin 13.2 GM/DL (14.0-18.0); Immature Granulocytes % 0.4 %; Immature Granulocytes Absolute 0.03 #; Lymphocytes # 1.3 10*3/uL (1.4-4.0); Lymphocytes % 15.4 % (21.2-54.2); Mean Corpuscular HGB Conc 30.7 GM/DL (32-36); Mean Corpuscular Volume 78.9 FL (87-102); Mean Platelet Volume 9.7 FL (9.6-12.0); Monocytes % 10.6 % (1.7-12.7); Neutrophils % 71.7 % (38.7-73.9); Platelet Count 145 T/CUMM (130-400); Red Blood Count 5.45 MC/CUMM (3.8-5.5); Red Cell Distribution Width 19.5 % (9.3-17.3); White Blood Count 8.5 T/CUMM (4-12)
[2020-07-01 05:59] LABS: Calcium 8.9 MG/DL (8.5-10.1); Osmolality,Calculated 267.2 MOS/KG (273-304); Potassium 3.8 MMOL/L (3.5-5.1)
[2020-07-01] MEDS: DOCUSATE SODIUM 100 MG CAPSULE PO SCH (08:49)
[2020-07-01] MEDS: carvediloL 6.25 MG TABLET PO SCH (08:50)
[2020-07-01] MEDS: POTASSIUM CHLORIDE 20 MEQ TABLET PO SCH (08:50)
[2020-07-01] MEDS: lisinopriL 10 MG TABLET PO SCH (08:50)
[2020-07-01] MEDS: CHOLECALCIFEROL 1,000 UNIT TABLET PO SCH (08:51)
[2020-07-01] MEDS: FUROSEMIDE 40 MG/4 ML VIAL IV SCH (08:51)
[2020-07-01] MEDS: LORATADINE 10 MG TABLET PO SCH (08:51)
[2020-07-01] MEDS: ASPIRIN EC 81 MG TABLET PO SCH (08:51)
[2020-07-01] MEDS: AZITHROMYCIN INJ 500 MG in SODIUM CHLORIDE 0.9% 250 ML IV SCH (08:53)
[2020-07-01 11:30] VITALS: BP 106/42
[2020-07-01] MEDS ORDERED: DOXYCYCLINE HYCLATE 100 MG CAPSULE PO SCH (21:00)
== END 2020-07-01 14:14 | disposition home or self-care (01) | DRG 194 ==
LOC: N.ED 11:19 → N.EDINP 17:40 → N.5E 19:32
PROVIDERS: ADMIT Hospitalist; ATTEND Hospitalist

== ENCOUNTER 2021-07-09 07:48 | Observation (INO) ==
[2021-07-09 08:44] LABS: Basophils # 0.1 10*3/uL (0.0-0.2); Basophils % 0.6 % (0.0-0.8); Eosinophils % 0.4 % (0.00-10.9); Hematocrit 45.1 VOL% (42.0-52.0); Immature Granulocytes % 0.5 %; Immature Granulocytes Absolute 0.04 #; Lymphocytes # 1.1 10*3/uL (1.4-4.0); Lymphocytes % 13.2 % (21.2-54.2); Mean Corpuscular Volume 82.4 FL (87-102); Monocytes # 0.8 10*3/uL (0.11-0.8); Monocytes % 9.7 % (1.7-12.7); Neutrophils % 75.6 % (38.7-73.9); Platelet Count 135 T/CUMM (130-400); Red Blood Count 5.47 MC/CUMM (3.8-5.5); Red Cell Distribution Width 18.4 % (9.3-17.3); White Blood Count 8.3 T/CUMM (4-12)
[2021-07-09 09:05] LABS: Albumin 3.7 G/DL (3.4-5.0); Bilirubin,Total 2.4 MG/DL (0.20-1.00); Calcium 9.3 MG/DL (8.5-10.1); Osmolality,Calculated 260.9 MOS/KG (273-304); Potassium 4.1 MMOL/L (3.5-5.1); Total Protein 7.3 G/DL (6.4-8.2)
[2021-07-09 09:13] LABS: Macrocytosis Slight; Polychromasia Slight
[2021-07-09 09:14] LABS: Platelet Estimate Normal
[2021-07-09] MEDS ORDERED: GLUCAGON 1 MG VIAL IM PRN (12:55)
[2021-07-09] MEDS ORDERED: ACETAMINOPHEN 325 MG TABLET PO PRN (12:56)
[2021-07-09] MEDS ORDERED: ONDANSETRON 4 MG/2 ML VIAL IV PRN (12:56)
[2021-07-09] MEDS ORDERED: ALBUTEROL/IPRATROPIUM 3 ML NEB RESP TX PRN (13:00)
[2021-07-09] MEDS ORDERED: DEXTROSE 10% 250 ML BAG IV PRN (13:15)
[2021-07-09 13:35] LABS: RBC,Urine 2 /HPF (0-4); Squamous Epithelial Cell,Urine Occasional /HPF (0-10)
[2021-07-09 13:41] LABS: Bilirubin,Urine Negative (Negative); Blood, Urine Trace mg/dL (Negative); Glucose,Urine (UA) Negative (Negative); Ketones,Urine Negative (Negative); Nitrite,Urine Negative (Negative); Protein,Urine 1+ mg/dL (Negative); Urine Appearance Clear (Clear); Urine Color Yellow (Yellow)
[2021-07-09 13:42] LABS: Urine Urobilinogen 0.2 eU/dL (<2.0)
[2021-07-09] MEDS ORDERED: ENOXAPARIN 40 MG/0.4 ML SYRINGE SUBCUT SCH (14:00)
[2021-07-09] MEDS ORDERED: LEVOFLOXACIN INJ 500 MG/100 ML PREMIX IV SCH (14:00)
[2021-07-09] MEDS ORDERED: FUROSEMIDE 40 MG/4 ML VIAL IV ONE (15:30)
[2021-07-09] MEDS: INSULIN LISPRO 100 UNIT/ML SUBCUT SCH ×2 (16:12→20:15)
[2021-07-09] MEDS ORDERED: FLUTICASONE 50 MCG NASAL SPRAY 16 GM BOTTLE BOTH NARES PRN (16:26)
[2021-07-09] MEDS: carvediloL 6.25 MG TABLET PO SCH (17:56)
[2021-07-10 05:32] LABS: Basophils % 0.5 % (0.0-0.8); Eosinophils % 0.3 % (0.00-10.9); Hematocrit 38.8 VOL% (42.0-52.0); Hemoglobin 12.3 GM/DL (14.0-18.0); Immature Granulocytes % 0.7 %; Immature Granulocytes Absolute 0.05 #; Lymphocytes # 1.1 10*3/uL (1.4-4.0); Lymphocytes % 14.5 % (21.2-54.2); Mean Corpuscular HGB Conc 31.7 GM/DL (32-36); Mean Corpuscular Volume 82.6 FL (87-102); Mean Platelet Volume 9.8 FL (9.6-12.0); Monocytes # 0.9 10*3/uL (0.11-0.8); Monocytes % 11.5 % (1.7-12.7); Neutrophils % 72.5 % (38.7-73.9); Platelet Count 103 T/CUMM (130-400); Red Cell Distribution Width 18.1 % (9.3-17.3); White Blood Count 7.4 T/CUMM (4-12)
[2021-07-10 06:06] LABS: Albumin 2.9 G/DL (3.4-5.0); Bilirubin,Total 1.6 MG/DL (0.20-1.00); Calcium 8.6 MG/DL (8.5-10.1); Osmolality,Calculated 265.4 MOS/KG (273-304); Risk Ratio 5.14; Thyroid Stimulating Hormone 0.752 uIU/ml (0.358-3.74); Total Protein 5.9 G/DL (6.4-8.2); VLDL Cholesterol 10.4 MG/DL
[2021-07-10] MEDS: carvediloL 6.25 MG TABLET PO SCH (08:47)
[2021-07-10] MEDS: INSULIN LISPRO 100 UNIT/ML SUBCUT SCH ×2 (08:48→12:36)
[2021-07-10] MEDS ORDERED: PANTOPRAZOLE 40 MG TABLET PO SCH (09:00)
[2021-07-10] MEDS ORDERED: ASPIRIN EC 81 MG TABLET PO SCH (09:00)
[2021-07-10] MEDS ORDERED: MULTIVITAMIN (CENTRUM) TABLET PO SCH (09:00)
[2021-07-10 12:18] VITALS: BP 137/91
== END 2021-07-10 12:27 | disposition home or self-care (01) ==
LOC: N.EDINP 07:48 → N.ED 07:48 → N.5E 14:32
PROVIDERS: ADMIT Internal Medicine; ATTEND Internal Medicine

== ENCOUNTER 2021-08-23 16:03 | Inpatient (IN) ==
[2021-08-23 16:34] LABS: Basophils % 0.7 % (0.0-0.8); Eosinophils # 0.1 10*3/uL (0.0-0.87); Eosinophils % 1.3 % (0.00-10.9); Hematocrit 46.3 VOL% (42.0-52.0); Hemoglobin 14.3 GM/DL (14.0-18.0); Immature Granulocytes % 0.2 %; Immature Granulocytes Absolute 0.01 #; Lymphocytes # 1.1 10*3/uL (1.4-4.0); Lymphocytes % 19.6 % (21.2-54.2); Mean Corpuscular HGB Conc 30.9 GM/DL (32-36); Mean Corpuscular Volume 84.6 FL (87-102); Mean Platelet Volume 9.7 FL (9.6-12.0); Monocytes # 0.5 10*3/uL (0.11-0.8); Monocytes % 8.4 % (1.7-12.7); Neutrophils % 69.8 % (38.7-73.9); Platelet Count 135 T/CUMM (130-400); Red Blood Count 5.47 MC/CUMM (3.8-5.5); Red Cell Distribution Width 18.6 % (9.3-17.3); White Blood Count 5.6 T/CUMM (4-12)
[2021-08-23 16:46] LABS: INR 1.1; PT Patient Result 12.4 SECS (10.5-12.0); Partial Thromboplastin Time 30.5 SECS (23.8-32.1)
[2021-08-23 16:58] LABS: Albumin 3.9 G/DL (3.4-5.0); Bilirubin,Total 1.4 MG/DL (0.20-1.00); Calcium 9.3 MG/DL (8.5-10.1); Osmolality,Calculated 271.2 MOS/KG (273-304); Potassium 4.5 MMOL/L (3.5-5.1); Total Protein 7.5 G/DL (6.4-8.2)
[2021-08-23] MEDS ORDERED: FUROSEMIDE 40 MG/4 ML VIAL IV STA (18:27)
[2021-08-23] MEDS ORDERED: GLUCAGON 1 MG VIAL IM PRN (21:17)
[2021-08-23] MEDS ORDERED: hydrALAZINE 20 MG/1 ML VIAL IV PRN (21:17)
[2021-08-23] MEDS ORDERED: DEXTROSE 10% 250 ML BAG IV PRN (21:17)
[2021-08-23] MEDS ORDERED: MORPHINE 2 MG/1 ML SYRINGE IV PRN (21:17)
[2021-08-23] MEDS ORDERED: ONDANSETRON 4 MG/2 ML VIAL IV PRN (21:17)
[2021-08-23] MEDS ORDERED: ACETAMINOPHEN 325 MG TABLET PO PRN (21:17)
[2021-08-23] MEDS ORDERED: carvediloL 6.25 MG TABLET PO SCH (22:30)
[2021-08-24 03:45] LABS: Basophils # 0.1 10*3/uL (0.0-0.2); Basophils % 0.7 % (0.0-0.8); Eosinophils % 0.6 % (0.00-10.9); Hematocrit 39.1 VOL% (42.0-52.0); Hemoglobin 12.1 GM/DL (14.0-18.0); Immature Granulocytes % 0.4 %; Immature Granulocytes Absolute 0.03 #; Lymphocytes # 1.5 10*3/uL (1.4-4.0); Mean Corpuscular HGB Conc 30.9 GM/DL (32-36); Mean Corpuscular Volume 84.3 FL (87-102); Mean Platelet Volume 10.2 FL (9.6-12.0); Monocytes # 0.7 10*3/uL (0.11-0.8); Monocytes % 10.9 % (1.7-12.7); Neutrophils % 65.4 % (38.7-73.9); Platelet Count 120 T/CUMM (130-400); Red Blood Count 4.64 MC/CUMM (3.8-5.5); Red Cell Distribution Width 18.1 % (9.3-17.3); White Blood Count 6.8 T/CUMM (4-12)
[2021-08-24 03:57] LABS: Bilirubin,Total 1.5 MG/DL (0.20-1.00); Calcium 8.6 MG/DL (8.5-10.1); Potassium 4.7 MMOL/L (3.5-5.1); Total Protein 6.4 G/DL (6.4-8.2)
[2021-08-24] MEDS ORDERED: POTASSIUM CHLORIDE 20 MEQ TABLET PO SCH (09:00)
[2021-08-24] MEDS ORDERED: FUROSEMIDE 40 MG/4 ML VIAL IV SCH (09:00)
[2021-08-24] MEDS ORDERED: ENOXAPARIN 40 MG/0.4 ML SYRINGE SUBCUT SCH (09:00)
[2021-08-24] MEDS: SPIRONOLACTONE 25 MG TABLET PO SCH (09:37)
[2021-08-24] MEDS: MULTIVITAMIN (CENTRUM) TABLET PO SCH (09:38)
[2021-08-24] MEDS: ASPIRIN EC 81 MG TABLET PO SCH (09:38)
[2021-08-24] MEDS: SACUBITRIL/VALSARTAN 49-51 MG TABLET PO SCH ×2 (09:38→20:39)
[2021-08-24] MEDS: PANTOPRAZOLE 40 MG TABLET PO SCH (09:38)
[2021-08-24] MEDS: FUROSEMIDE 40 MG/4 ML VIAL IV SCH ×2 (09:42→16:28)
[2021-08-24] MEDS ORDERED: NITROGLYCERIN SL 0.4 MG TABLET SL PRN (10:07)
[2021-08-24] MEDS: LATANOPROST 0.005% OPH SOLN 2.5 ML BOTTLE BOTH EYES SCH (20:30)
[2021-08-24] MEDS ORDERED: SIMVASTATIN 20 MG TABLET PO SCH (21:00)
[2021-08-24] MEDS ORDERED: PITAVASTATIN 2 MG TABLET PO SCH (21:00)
[2021-08-25 06:24] LABS: Basophils % 0.6 % (0.0-0.8); Eosinophils # 0.1 10*3/uL (0.0-0.87); Eosinophils % 1.1 % (0.00-10.9); Hematocrit 42.8 VOL% (42.0-52.0); Hemoglobin 13.5 GM/DL (14.0-18.0); Immature Granulocytes % 0.3 %; Immature Granulocytes Absolute 0.02 #; Lymphocytes # 1.2 10*3/uL (1.4-4.0); Lymphocytes % 16.9 % (21.2-54.2); Mean Corpuscular HGB Conc 31.5 GM/DL (32-36); Mean Corpuscular Volume 83.1 FL (87-102); Mean Platelet Volume 10.9 FL (9.6-12.0); Monocytes # 0.8 10*3/uL (0.11-0.8); Monocytes % 10.5 % (1.7-12.7); Neutrophils % 70.6 % (38.7-73.9); Platelet Count 113 T/CUMM (130-400); Red Blood Count 5.15 MC/CUMM (3.8-5.5); Red Cell Distribution Width 18.5 % (9.3-17.3); White Blood Count 7.3 T/CUMM (4-12)
[2021-08-25 06:40] LABS: Calcium 8.7 MG/DL (8.5-10.1); Osmolality,Calculated 277.5 MOS/KG (273-304); Potassium 3.8 MMOL/L (3.5-5.1)
[2021-08-25 06:49] LABS: Anisocytosis 1+; Macrocytosis 1+; Platelet Estimate Adequate
[2021-08-25] MEDS: FUROSEMIDE 40 MG/4 ML VIAL IV SCH ×2 (08:43→15:25)
[2021-08-25] MEDS ORDERED: carvediloL 3.125 MG TABLET PO SCH (09:00)
[2021-08-25] MEDS: SPIRONOLACTONE 25 MG TABLET PO SCH (09:41)
[2021-08-25] MEDS: PANTOPRAZOLE 40 MG TABLET PO SCH (09:41)
[2021-08-25] MEDS: MULTIVITAMIN (CENTRUM) TABLET PO SCH (09:41)
[2021-08-25] MEDS: SACUBITRIL/VALSARTAN 49-51 MG TABLET PO SCH ×2 (09:41→20:16)
[2021-08-25] MEDS: ASPIRIN EC 81 MG TABLET PO SCH (09:41)
[2021-08-25] MEDS: LATANOPROST 0.005% OPH SOLN 2.5 ML BOTTLE BOTH EYES SCH (20:17)
[2021-08-26 04:41] LABS: Basophils % 0.5 % (0.0-0.8); Eosinophils # 0.1 10*3/uL (0.0-0.87); Eosinophils % 0.8 % (0.00-10.9); Hematocrit 44.6 VOL% (42.0-52.0); Hemoglobin 14.3 GM/DL (14.0-18.0); Immature Granulocytes % 0.5 %; Immature Granulocytes Absolute 0.04 #; Lymphocytes # 1.4 10*3/uL (1.4-4.0); Lymphocytes % 17.4 % (21.2-54.2); Mean Corpuscular HGB Conc 32.1 GM/DL (32-36); Mean Corpuscular Volume 82.1 FL (87-102); Mean Platelet Volume 9.3 FL (9.6-12.0); Monocytes % 13.3 % (1.7-12.7); Neutrophils % 67.5 % (38.7-73.9); Platelet Count 150 T/CUMM (130-400); Red Blood Count 5.43 MC/CUMM (3.8-5.5); Red Cell Distribution Width 18.3 % (9.3-17.3); White Blood Count 7.8 T/CUMM (4-12)
[2021-08-26 04:55] LABS: Calcium 8.6 MG/DL (8.5-10.1); Osmolality,Calculated 274.8 MOS/KG (273-304); Potassium 3.1 MMOL/L (3.5-5.1)
[2021-08-26] MEDS ORDERED: POTASSIUM CHLORIDE 20 MEQ TABLET PO PRN (06:24)
[2021-08-26] MEDS ORDERED: POTASSIUM CHLORIDE 20 MEQ TABLET PO ONE (06:24)
[2021-08-26] MEDS ORDERED: diphenhydrAMINE CAP 50 MG CAPSULE PO ONE (09:00)
[2021-08-26] MEDS ORDERED: DIAZEPAM 5 MG TABLET PO ONE (09:00)
[2021-08-26] MEDS ORDERED: fentaNYL 100 MCG/2 ML VIAL ONE (11:48)
[2021-08-26] MEDS ORDERED: MIDAZOLAM 2 MG/2 ML VIAL ONE ×2 (11:48→13:53)
[2021-08-26] MEDS ORDERED: ENOXAPARIN 30 MG/0.3 ML SYRINGE ONE (12:27)
[2021-08-26] MEDS ORDERED: TIROFIBAN 5,000 MCG/100 ML PREMIX IV ONE (12:36)
[2021-08-26] MEDS ORDERED: NITROGLYCERIN DRIP 50 MG/250 ML BOTTLE IV ONE (12:49)
[2021-08-26] MEDS ORDERED: TICAGRELOR 90 MG TABLET ONE (14:11)
[2021-08-26] MEDS ORDERED: TIROFIBAN 5,000 MCG/100 ML PREMIX IV SCH (14:20)
[2021-08-26] MEDS ORDERED: SODIUM CHLORIDE 0.9% 1,000 ML IV SCH (14:30)
[2021-08-26 14:45] LABS: RBC,Urine 7 /HPF (0-4)
[2021-08-26 14:46] LABS: Urine Appearance Clear (Clear); Urine Color Yellow (Yellow)
[2021-08-26 14:47] LABS: Bilirubin,Urine Small mg/dL (Negative); Blood, Urine Small mg/dL (Negative); Glucose,Urine (UA) Negative (Negative); Ketones,Urine 15 mg/dL (Negative); Nitrite,Urine Negative (Negative); Protein,Urine >=300 mg/dL (Negative); Urine Specific Gravity > 1.030 (1.001-1.035)
[2021-08-26] MEDS: SPIRONOLACTONE 25 MG TABLET PO SCH (14:56)
[2021-08-26] MEDS: MULTIVITAMIN (CENTRUM) TABLET PO SCH (14:57)
[2021-08-26] MEDS: ASPIRIN EC 81 MG TABLET PO SCH (14:57)
[2021-08-26] MEDS: SACUBITRIL/VALSARTAN 49-51 MG TABLET PO SCH ×2 (14:58→20:51)
[2021-08-26] MEDS: PANTOPRAZOLE 40 MG TABLET PO SCH (14:58)
[2021-08-26] MEDS: TICAGRELOR 90 MG TABLET PO SCH (20:51)
[2021-08-26] MEDS: LATANOPROST 0.005% OPH SOLN 2.5 ML BOTTLE BOTH EYES SCH (20:54)
[2021-08-26] MEDS ORDERED: SIMVASTATIN 20 MG TABLET PO SCH (21:00)
[2021-08-27 05:47] LABS: Basophils % 0.5 % (0.0-0.8); Eosinophils # 0.1 10*3/uL (0.0-0.87); Eosinophils % 0.9 % (0.00-10.9); Hematocrit 44.4 VOL% (42.0-52.0); Hemoglobin 14.3 GM/DL (14.0-18.0); Immature Granulocytes % 0.4 %; Immature Granulocytes Absolute 0.03 #; Lymphocytes # 1.2 10*3/uL (1.4-4.0); Lymphocytes % 13.7 % (21.2-54.2); Mean Corpuscular HGB Conc 32.2 GM/DL (32-36); Mean Corpuscular Volume 81.9 FL (87-102); Mean Platelet Volume 9.9 FL (9.6-12.0); Monocytes # 1.2 10*3/uL (0.11-0.8); Monocytes % 13.8 % (1.7-12.7); Neutrophils % 70.7 % (38.7-73.9); Platelet Count 161 T/CUMM (130-400); Red Blood Count 5.42 MC/CUMM (3.8-5.5); Red Cell Distribution Width 19.1 % (9.3-17.3); White Blood Count 8.6 T/CUMM (4-12)
[2021-08-27 06:01] LABS: Calcium 8.4 MG/DL (8.5-10.1); Osmolality,Calculated 274.7 MOS/KG (273-304); Potassium 3.3 MMOL/L (3.5-5.1)
[2021-08-27 06:05] LABS: Calcium 8.3 MG/DL (8.5-10.1); Osmolality,Calculated 272.8 MOS/KG (273-304); Potassium 3.3 MMOL/L (3.5-5.1); Risk Ratio 5.68; VLDL Cholesterol 13.8 MG/DL
[2021-08-27 06:09] LABS: High Sensitive Troponin I* 11848.1 ng/L (0-78)
[2021-08-27] MEDS ORDERED: POTASSIUM CHLORIDE 20 MEQ TABLET PO ONE ×2 (07:29→08:21)
[2021-08-27] MEDS ORDERED: DAPAGLIFLOZIN 10 MG TABLET PO SCH (09:00)
[2021-08-27] MEDS: SPIRONOLACTONE 25 MG TABLET PO SCH (10:35)
[2021-08-27] MEDS: TICAGRELOR 90 MG TABLET PO SCH (10:36)
[2021-08-27] MEDS: MULTIVITAMIN (CENTRUM) TABLET PO SCH (10:36)
[2021-08-27] MEDS: PANTOPRAZOLE 40 MG TABLET PO SCH (10:36)
[2021-08-27] MEDS: ASPIRIN EC 81 MG TABLET PO SCH (10:36)
[2021-08-27] MEDS: SACUBITRIL/VALSARTAN 49-51 MG TABLET PO SCH (10:36)
[2021-08-27] MEDS: FUROSEMIDE 40 MG/4 ML VIAL IV SCH (10:37)
[2021-08-27 11:59] VITALS: BP 118/77
[2021-08-28] MEDS ORDERED: FUROSEMIDE 40 MG TABLET PO SCH (09:00)
== END 2021-08-27 15:30 | disposition home or self-care (01) | DRG 246 ==
LOC: N.ED 16:03 → N.EDINP 16:03 → SUATTDRO 21:17 → N.EDINP 08-24 13:55 → N.TELES 08-24 14:00
PROVIDERS: ADMIT Hospitalist; ATTEND Family Medicine